=== PATIENT | female | born 1940 | race Caucasian/White ===

== ENCOUNTER → 2017-06-08 10:19 | Outpatient (CLI) | payer MEDICARE, MEDICAID, SELFPAY ==
--- NOTE | 2017-06-08 10:43 | XR_ITS ---
XR chest 2V HISTORY: ITS.REASON: COPD, CVA, HX STROKE ORDERING PHYSICIAN: Funmilayo Ball PATIENT AGE: 76 years COMPARISON: 03/25/2009 FINDINGS: The cardiomediastinal silhouette and pulmonary vascularity are within normal limits. The lungs are clear without infiltrates, suspicious nodules, or pleural effusions. No acute bony abnormalities. IMPRESSION: Negative chest, no acute finding
== END ==
PROVIDERS: PCP Nurse Practitioner; Visit Provider Nurse Practitioner
DX: I63.9 Cerebral infarction, unspecified (principal); J44.1 Chronic obstructive pulmonary disease with (acute) exacerbation; Z86.73 Personal history of transient ischemic attack (TIA), and cerebral infarction without residual deficits; J44.9 Chronic obstructive pulmonary disease, unspecified
CPT/HCPCS: 71046

== ENCOUNTER → 2017-06-20 08:09 | Outpatient (CLI) | payer MEDICARE, MEDICAID, SELFPAY ==
--- NOTE | 2017-06-20 08:13 | US_ITS ---
US liver HISTORY: ITS.REASON: ELEVATED LIVER FUNCTION ORDERING PHYSICIAN: Funmilayo Ball PATIENT AGE: 76 years COMPARISON: None FINDINGS: PANCREAS:Unremarkable. No obvious mass or abnormal fluid collection. No ductal dilatation LIVER:No focal liver lesions demonstrated. Homogeneous echogenicity. No intrahepatic biliary ductal dilatation evident there is appropriate direction of blood flow within the portal vein which is nondilated. No intrahepatic biliary ductal dilatation evident. RIGHT KIDNEY:Unremarkable. Normal size and echogenicity. No hydronephrosis LEFT KIDNEY:Unremarkable. No hydronephrosis. Normal size and echogenicity. GALLBLADDER:Gallbladder is slightly distended and contains multiple stones. No gallbladder wall thickening or pericholecystic fluid is evident. Common bile duct is normal at 3 mm. The gallbladder measures up to 6 cm AP and 5 cm transverse. IMPRESSION: 1. Distended gallbladder with cholelithiasis. 2. Unremarkable appearing liver
== END ==
PROVIDERS: Family Provider Family Medicine; PCP Nurse Practitioner; Visit Provider Nurse Practitioner
DX: R79.89 Other specified abnormal findings of blood chemistry (principal); R94.5 Abnormal results of liver function studies
CPT/HCPCS: 76705

== ENCOUNTER → 2017-07-23 13:48 | Outpatient (POV) | payer MEDICARE, MEDICAID, SELFPAY ==
[2017-07-23 15:20] LABS: Basophils % 0.5 % (0.1-2.0); Eosinophils # 0.1 K/mm3 (0.0-0.4); Eosinophils % 1.6 % (0.1-12.0); Hematocrit 45.9 % (37.0-47.0); Hemoglobin 14.4 g/dL (12.2-16.2); Lymphocytes # 1.8 K/mm3 (0.7-4.5); Mean Corpuscular HGB Conc 31.3 g/dL (31.8-35.4); Mean Corpuscular Hemoglobin 32.7 pg (27.0-31.2); Mean Corpuscular Volume 104.6 fl (81-99); Mean Platelet Volume 7.5 fl (7.4-10.4); Monocytes # 0.5 K/mm3 (0.1-1.0); Monocytes % 6.7 % (1.7-9.3); Neutrophils # 5.4 K/mm3 (1.8-7.8); Neutrophils % 68.3 % (37.0-80.0); Platelet Count 360 K/mm3 (142-424); Red Blood Count 4.39 M/mm3 (4.20-5.40)
[2017-07-23 15:34] LABS: Alanine Aminotransferase 21 U/L (12-78); Albumin Level 2.9 gm/dL (3.4-5.0); Albumin/Globulin Ratio 0.6 (1.1-1.8); Alkaline Phosphatase 328 U/L (46-116); Amylase 104 U/L (25-125); Anion Gap 10.5 mEq/L (5-15); Aspartate Amino Transferase 15 U/L (15-37); Bilirubin,Total 0.1 mg/dL (0.2-1.0); Blood Urea Nitrogen 10 mg/dL (7-18); Carbon Dioxide 31 mmol/L (21.0-32.0); Chloride 102 mmol/L (98-107); Creatinine,Serum 0.92 mg/dL (0.55-1.02); Estimated Glomerular Filt Rate 60 ml/min (>60); GFR (African American) 72 ML/MIN (>60); Glucose 96 mg/dL (74-106); Lipase 135 u/L (73-393); Potassium 5.5 mmoL/L (3.5-5.1); Sodium 138 mmol/L (136-145); Total Protein,Serum 7.9 gm/dL (6.4-8.2)
[2017-07-26 15:22] LABS: Bone Fraction: 24 % (14-68); Liver Fraction: 73 % (18-85)
[2017-07-26 15:50] LABS: Alkaline Phosphatase 302 IU/L (39-117)
[2017-07-26 15:54] LABS: Intestinal Frac.: 2 % (0-18)
== END ==
PROVIDERS: Family Provider Family Medicine; PCP Nurse Practitioner; Visit Provider Nurse Practitioner Acute Care
DX: R94.5 Abnormal results of liver function studies (principal)
CPT/HCPCS: 36415; 80053; 82150; 83690; 84080; 85025

== ENCOUNTER → 2017-08-02 08:39 | Outpatient (CLI) | payer MEDICARE, MEDICAID, SELFPAY ==
--- NOTE | 2017-08-02 08:43 | MR_ITS ---
MR abdomen wo con, MR 3-d myelogram/MRCP HISTORY: ITS.REASON: RUQ PAIN, ABNORMAL LIVER FUNCTION ORDERING PHYSICIAN: Marlene Duenas PATIENT AGE: 76 years COMPARISON: ultrasound of 06/20/2017 TECHNIQUE: Standard multiplanar multiecho sequences are performed without contrast. MRCP images also obtained FINDINGS: There are multiple gallstones present. The gallbladder is mildly distended. There is a stone present within the neck/cystic duct region of the gallbladder. This stone measures approximately 1 cm. The gallbladder wall does not appear thickened and there is no pericholecystic fluid evident. Proximal common bile duct measures approximate 7 mm which is upper limits of normal. No definite common duct stones are evident. Pancreatic duct is normal in caliber. On the 3-D reformatted images are as questionable filling defect at the distal common bile duct. This however may limit be related to a partial volume averaging artifact from the overlying folds of the duodenum as no obvious filling defect is evident on the raw data axial images. The liver, spleen, pancreas, and kidneys have an unremarkable appearance. IMPRESSION: 1. Cholelithiasis with distended gallbladder and suspected impacted stone within the neck/proximal cystic duct region of the gallbladder. 2. No definite common duct stones apparent.
== END ==
PROVIDERS: Family Provider Family Medicine; PCP Nurse Practitioner; Visit Provider Nurse Practitioner Acute Care
DX: R94.5 Abnormal results of liver function studies (principal); K80.20 Calculus of gallbladder without cholecystitis without obstruction
CPT/HCPCS: 74181; 76376

== ENCOUNTER → 2017-09-24 14:52 | Outpatient (POV) | payer MEDICARE, MEDICAID, SELFPAY | PROVIDERS: Visit Provider Nurse Practitioner Acute Care | DX: Z00.00 Encounter for general adult medical examination without abnormal findings (principal) ==

== ENCOUNTER → 2017-12-25 09:16 | Outpatient (CLI) | payer MEDICARE, MEDICAID, SELFPAY ==
--- NOTE | 2017-12-25 | US_ITS ---
US Arterial Ankle Brachial Ind History: Diminished pulses, smoker ORDERING PHYSICIAN: Lashonda James PATIENT AGE: 77 years TECHNIQUE: Segmental pressures obtained of both right and left leg. These are compared to brachial blood pressure to yield index at each level sampled including summary ROSA. The data sheets from the procedure are available in PACS FINDINGS Rest study only performed today No prior studies available for comparison. Blood pressures reported are in millimeters mercury. The right brachial blood pressure remained low compared to the left side only measuring 88 mmHg compared to 130 on the left. The right lower extremity indices are therefore compared to the left upper extremity. RIGHT LEG ROSA = 0.98. RIGHT LEG TBI=1.08 Brachial BP: 88 Thigh BP: 100 Calf BP: 102 Ankle PT: 103 Ankle DP : 127 Digit =140 LEFT LEG ROSA = 0.91 LEFT LEG TBI= 0.68 Brachial BPD: 140 Thigh BP: 144 Calf BP: 130 Ankle PT:118 Ankle DP: 117 Digit = 89 Pulses and waveforms: Normal IMPRESSION: 1. The ABIs as reported above are within normal limits. Waveforms and pulses are also unremarkable. 2. Slightly low left TBI which may indicate small vessel disease. 3. Asymmetric blood pressure with depressed right upper extremity pressure suggesting a stenosis of the right subclavian, axillary or brachial artery. CT angiogram may confirm.
== END ==
PROVIDERS: Family Provider Family Medicine; PCP Nurse Practitioner Family; Visit Provider Nurse Practitioner Family
DX: R09.89 Other specified symptoms and signs involving the circulatory and respiratory systems (principal)
CPT/HCPCS: 93922

== ENCOUNTER → 2018-08-15 10:54 | Outpatient (POV) | payer MEDICARE, MEDICAID, SELFPAY | PROVIDERS: Visit Provider Podiatrist | DX: Z00.00 Encounter for general adult medical examination without abnormal findings (principal) ==

== ENCOUNTER → 2019-02-13 10:31 | Outpatient (CLI) | payer MEDICARE, MEDICAID, SELFPAY ==
--- NOTE | 2019-02-13 10:42 | XR_ITS ---
PROCEDURE: XR CHEST 2V CLINICAL HISTORY: PNEUMONIA,COPD Or COMPARISON: CXR2V XR chest 2V from 06/08/2017 FINDINGS: The cardiomediastinal silhouette and pulmonary vascularity are within normal limits. The lungs are clear without infiltrates, suspicious nodules, or pleural effusions. Chronic changes left lung base/pericardial fat pad IMPRESSION: No change with no acute finding Dictated by: George Navarrete MD 02/13/2019 11:15 Electronically signed by George Navarrete MD in [place] 02/13/2019 11:15
== END ==
PROVIDERS: PCP Family Medicine; Visit Provider Nurse Practitioner Family
DX: J18.1 Lobar pneumonia, unspecified organism (principal); J44.1 Chronic obstructive pulmonary disease with (acute) exacerbation
CPT/HCPCS: 71046

== ENCOUNTER → 2019-03-26 12:50 | Outpatient (CLI) | payer MEDICARE, MEDICAID, SELFPAY ==
--- NOTE | 2019-03-26 12:54 | US_ITS ---
APPROVED REPORT Exam Type: Lower Extremity Segmental Pressures Wood Engraver: Lashaun Fraga RVT Indications Claudication: Bilaterally Rest Pain: Bilaterally Edema Current Smoker Risk Factors Hypertension TIA/CVA History Current Smoker Pressures/Indices Right Indices Left Indices Brachial Brachial 170.00 mmHg Low Thigh 160.00 mmHg 0.94 Low Thigh 162.00 mmHg 0.95 Calf 161.00 mmHg 0.95 Calf 152.00 mmHg 0.89 Ankle(PT) 155.00 mmHg 0.91 Ankle(PT) 162.00 mmHg 0.95 Ankle(DP) 160.00 mmHg 0.94 Ankle(DP) 155.00 mmHg 0.91 Digit 142.00 mmHg 0.84 Digit 127.00 mmHg 0.75 Findings RT ROSA:0.91 LT ROSA:0.95 RT TBI:0.84 LT TBI:0.75 RT BRACHIAL BP NOT OBTAINED R/T PRIOR CVA WITH RT ARM PARALYSIS. NORMAL PULSES BILATERAL NORMAL WAVEFORMS BILATERAL Conclusion No evidence significant arterial disease throughout the right and left lower extremities as evidenced by normal resting PVR waveforms and normal resting indices. Electronically signed by : George Navarrete MD 03/26/2019 18:45:05
== END ==
PROVIDERS: PCP Family Medicine; Visit Provider Podiatrist
DX: R09.89 Other specified symptoms and signs involving the circulatory and respiratory systems (principal)
CPT/HCPCS: 93923

== ENCOUNTER → 2019-04-21 10:52 | Outpatient (CLI) | payer MEDICARE, MEDICAID, SELFPAY ==
--- NOTE | 2019-04-21 11:01 | XR_ITS ---
PROCEDURE: XR CHEST 2V CLINICAL HISTORY: PNEUMONIA COMPARISON: XR CHEST 2V from 02/13/2019 FINDINGS: The cardiomediastinal silhouette and pulmonary vascularity are within normal limits. Patchy density is present in both lower lobes and may be due to areas of atelectasis and/or infiltrate. The remaining lungs are clear. No acute bony abnormalities. IMPRESSION: Mild bibasilar airspace disease Dictated by: George Navarrete MD 04/21/2019 12:09 Electronically signed by George Navarrete MD in [place] 04/21/2019 12:09
[2019-04-21 12:57] LABS: Basophils % 0.4 % (0.1-2.0); Eosinophils # 0.1 K/mm3 (0.0-0.4); Hematocrit 40.7 % (37.0-47.0); Hemoglobin 12.5 g/dL (12.2-16.2); Lymphocytes # 0.9 K/mm3 (0.7-4.5); Lymphocytes % 9.1 % (10-50); Mean Corpuscular HGB Conc 30.7 g/dL (31.8-35.4); Mean Corpuscular Hemoglobin 32.9 pg (27.0-31.2); Mean Corpuscular Volume 107.1 fl (81-99); Mean Platelet Volume 7.8 fl (7.4-10.4); Monocytes # 0.4 K/mm3 (0.1-1.0); Monocytes % 4.6 % (1.7-9.3); Neutrophils % 84.9 % (37.0-80.0); Platelet Count 330 K/mm3 (142-424); Red Cell Distribution Width 12.6 % (11.5-17.5); White Blood Count 9.4 K/mm3 (4.8-10.8)
[2019-04-21 15:17] LABS: Alanine Aminotransferase 13 U/L (12-78); Albumin/Globulin Ratio 0.8 (1.1-1.8); Alkaline Phosphatase 355 U/L (46-116); Anion Gap 13.3 mEq/L (5-15); Aspartate Amino Transferase 9 U/L (15-37); Bilirubin,Total 0.2 mg/dL (0.2-1.0); Blood Urea Nitrogen 15 mg/dL (7-18); Calcium 8.2 mg/dL (8.5-10.1); Carbon Dioxide 26 mmol/L (21.0-32.0); Chloride 102 mmol/L (98-107); Creatinine,Serum 1.17 mg/dL (0.55-1.02); Estimated Glomerular Filt Rate 45 ml/min (>60); GFR (African American) 54 ML/MIN (>60); Globulin 3.9 gm/dl (1.3-3.2); Glucose 94 mg/dL (74-106); Potassium 5.3 mmoL/L (3.5-5.1); Sodium 136 mmol/L (136-145); Total Protein,Serum 6.9 gm/dL (6.4-8.2)
== END ==
PROVIDERS: PCP Family Medicine; Visit Provider Nurse Practitioner Family
DX: J18.9 Pneumonia, unspecified organism (principal); R06.02 Shortness of breath
CPT/HCPCS: 36415; 71046; 80053; 83880; 85025

== ENCOUNTER 2019-09-19 18:43 | Emergency (ER) | payer MEDICARE, MEDICAID, SELFPAY ==
[2019-09-19 18:54] VITALS: BP 165/83; PULSE 107; RESP 18; TEMP 37.3; O2SAT 98; BMI 24.7
--- NOTE | 2019-09-19 19:06 | XR_ITS ---
PROCEDURE: XR KNEE LT 3V CLINICAL INDICATION: injury Posttraumatic pain COMPARISON: KNEE3R KNEE-3 VIEWS-RT from 03/07/2014 [id number] KNEE-LIMITED 2 VIEWS-RT from 03/25/2014 [id number] KNEE-LIMITED 2 VIEWS-RT from 04/28/2014 [id number] KNEE-LIMITED 2 VIEWS-RT from 06/09/2014 FINDINGS: Mild osteoarthritic changes of the medial compartment and patellofemoral joint. No acute fracture or dislocation. Other findings:None. IMPRESSION: No acute findings. Dictated by: George Navarrete MD 09/19/2019 22:43 Electronically signed by George Navarrete MD in [place] 09/19/2019 22:43
[2019-09-19 19:11] VITALS: BP 165/83; PULSE 107; RESP 18; TEMP 37.3; O2SAT 98; BMI 24.7
--- NOTE | 2019-09-19 19:29 | HMH.EDUTC ---
[facility] [place] Disposition Clinical Impression: Left knee pain Qualifiers: Chronicity: acute Qualified Code(s): M25.562 - Pain in left knee Fall Qualifiers: Encounter type: initial encounter Qualified Code(s): W19.XXXA - Unspecified fall, initial encounter Disposition: Home, Self-Care Condition on Discharge: Good Instructions: DI for Knee Pain Additional Instructions: Rest the extremity, apply ice for 15 minutes as tolerated three or four times per day, Wear the magaly wrap for compression, Elevate the extremity as tolerated while you are resting. Follow up with Dr. Cui. I put in a referral but you need to call her office and schedule an appointment. Follow up with your regular doctor. GO TO THE ER FOR ANY WORSENING SYMPTOMS Referrals: Aneesh Andrade MD [Primary Care Provider] - Brigette Cui MD [Physician] - Time of Disposition: 20:15 Medical Decision Making - Medical Records Medical records reviewed: No: I reviewed the patient's medical records. - Ricardo Inquiry Pt receiving controlled substance: No Vital Signs: 09/19/19 18:54 09/19/19 19:11 09/19/19 20:19 Temperature 99.1 F 99.1 F 99.1 F Temperature Source Oral Oral Pulse Rate 107 H Pulse Rate [Left Radial] 107 H 107 H Respiratory Rate 18 18 18 Blood Pressure 165/83 H Blood Pressure [Right Arm] 165/83 H 165/83 H Blood Pressure Mean [Right Arm] 110 110 Blood Pressure Source [Right Arm] Automatic Cuff Blood Pressure Position [Right Arm] Sitting Sitting 02 Sat by Pulse Oximetry 98 98 Oxygen Delivery Method Room Air Room Air - Radiology Data #1 Image(s): Knee Image Reviewed: Yes I reviewed the patient's radiology image, Yes I have reviewed radiologist's interpretation Preliminary Findings: No Fracture Seen PROCEDURE: XR KNEE LT 3V CLINICAL INDICATION: injury Posttraumatic pain COMPARISON: KNEE3R KNEE-3 VIEWS-RT from 03/07/2014 [id number] KNEE-LIMITED 2 VIEWS-RT from 03/25/2014 [id number] KNEE-LIMITED 2 VIEWS-RT from 04/28/2014 [id number] KNEE-LIMITED 2 VIEWS-RT from 06/09/2014 FINDINGS: Mild osteoarthritic changes of the medial compartment and patellofemoral joint. No acute fracture or dislocation. Other findings:None. IMPRESSION: No acute findings. Dictated by: George Navarrete MD 09/19/2019 22:43 Electronically signed by George Navarrete MD in [place] 09/19/2019 22:43 [facility] [place] HPI - General Stated complaint: AO 09/19/19 Fell at home, injured l leg Time Seen by Provider: 09/19/19 19:36 Mode of Arrival: Ambulatory Source of Information: Patient Limitations: No Limitations Description of Symptoms (Recalled from Triage Doc. by RN): to ed pre pvt car pt states tripped over a strip on the floor, fell landing on rt knee. pt with hx of CVA weakness to rt side. pt denies any LOC or head injury. pt c/o pain lateral rt knee HEENT Symptoms (Recalled from RN notes): No Resp Symptoms (Recalled from RN notes): No Skin Symptoms (Recalled from RN notes): No MS Symptoms (Recalled from RN notes): Yes Functional Status (Recalled from RN notes): WNL - History of Present Illness Provider Complaint: She states that earlier today she fell forward from tripping over something in her floor and came down on her right knee. Since then she has had right knee pain that is worse when she tries to bear weight on it. - Related Data Home Medications Medication Instructions Recorded Confirmed phenytoin sodium extended 100 mg 100 mg PO TID 07/06/17 05/28/19 capsule Phenytoin [Dilantin 50mg Chewable 50 mg PO QODHS 08/21/17 05/28/19 Tablet] Fluticasone/Vilanterol [Breo 1 each IH DAILY 08/31/17 05/28/19 Ellipta 100-25 Mcg INH] Cyanocobalamin (Vitamin B-12) 1,000 mcg PO DAILY 04/26/18 05/28/19 [Vitamin B-12] Ursodiol 500 mg PO BID 04/26/18 05/28/19 clopidogrel 75 mg tablet 75 mg PO DAILY 02/24/19 05/28/19 ipratropium 0.5 mg-albuterol 3 mg ml INHALATION 05/28/19 05/28/19 (2.5 mg base)/3 mL nebulization yenifer singh
[2019-09-19 20:19] VITALS: BP 165/83; PULSE 107; RESP 18; TEMP 37.3; O2SAT 98
== END 2019-09-19 20:20 | disposition home or self-care (01) ==
PROVIDERS: Emergency Provider Nurse Practitioner Family; PCP Family Medicine
DX: M25.562 Pain in left knee (principal); W01.0XXA Fall on same level from slipping, tripping and stumbling without subsequent striking against object, initial encounter; Y92.019 Unspecified place in single-family (private) house as the place of occurrence of the external cause; Z86.73 Personal history of transient ischemic attack (TIA), and cerebral infarction without residual deficits; J44.9 Chronic obstructive pulmonary disease, unspecified; F17.210 Nicotine dependence, cigarettes, uncomplicated
CPT/HCPCS: 73562; 99201

== ENCOUNTER → 2020-04-20 15:21 | Outpatient (CLI) | payer MEDICARE, MEDICAID, SELFPAY ==
--- NOTE | 2020-04-20 | XR_ITS ---
PROCEDURE: XR CHEST PORTABLE CLINICAL HISTORY: Low O2, smoker, COPD COMPARISON: DX CXR2V XR chest 2V from 06/08/2017 CR XR CHEST 2V from 02/13/2019 DX XR CHEST 2V from 04/21/2019 FINDINGS: The cardiomediastinal silhouette and pulmonary vascularity are within normal limits. The lungs are clear without infiltrates, suspicious nodules, or pleural effusions. There is diffuse osteopenia. IMPRESSION: No acute findings. Dictated by: George Navarrete MD 04/20/2020 17:04 George Navarrete MD in [place] 04/20/2020 17:04
[2020-04-20 18:16] LABS: Basophils % 0.9 % (0.1-2.0); Eosinophils % 0.1 % (0.1-12.0); Hemoglobin 12.4 g/dL (12.2-16.2); Lymphocytes # 0.8 K/mm3 (0.7-4.5); Lymphocytes % 16.1 % (10-50); Mean Corpuscular HGB Conc 32.6 g/dL (31.8-35.4); Mean Corpuscular Hemoglobin 31.8 pg (27.0-31.2); Mean Corpuscular Volume 97.3 fl (81-99); Mean Platelet Volume 8.9 fl (7.4-10.4); Monocytes # 0.4 K/mm3 (0.1-1.0); Monocytes % 8.1 % (1.7-9.3); Neutrophils # 3.5 K/mm3 (1.8-7.8); Neutrophils % 74.8 % (37.0-80.0); Platelet Count 253 K/mm3 (142-424); Red Blood Count 3.91 M/mm3 (4.20-5.40); White Blood Count 4.7 K/mm3 (4.8-10.8)
[2020-04-20 18:22] LABS: Chloride 101 mmol/L (98-107); Potassium 4.7 mmoL/L (3.5-5.1); Sodium 131 mmol/L (136-145)
[2020-04-20 18:24] LABS: Alanine Aminotransferase 12 U/L (12-78); Aspartate Amino Transferase 28 U/L (14-36); Blood Urea Nitrogen 13 mg/dl (7-17); Estimated Glomerular Filt Rate 43 ml/min (>60); GFR (African American) 53 ML/MIN (>60)
[2020-04-20 18:25] LABS: Albumin Level 3.7 g/dl (3.5-5.0); Albumin/Globulin Ratio 0.9 (1.1-1.8); Alkaline Phosphatase 358 U/L (38-126); Anion Gap 11.7 mEq/L (5-15); Bilirubin,Total 0.3 mg/dl (0.2-1.3); Carbon Dioxide 23 mmol/L (22.0-30.0); Globulin 3.9 g/dL (1.3-3.2); Glucose 112 mg/dl (74-100); Total Protein,Serum 7.6 g/dl (6.3-8.2)
== END ==
PROVIDERS: PCP Nurse Practitioner Family; Visit Provider Nurse Practitioner Family
DX: U07.1 COVID-19 (principal)
CPT/HCPCS: 36415; 71045; 80053; 85025; U0003

== ENCOUNTER 2020-04-23 09:37 | Inpatient (IN) | payer MEDICARE, MEDICAID, SELFPAY ==
[2020-04-23] VITALS (13 sets, daily range): BP systolic 122–164; BP diastolic 62–74; PULSE 95–100; RESP 20–28; TEMP 36.6–37.1; O2SAT 88–98; BMI 25.7; BMI 22.8
--- NOTE | 2020-04-23 09:48 | HMH.EDGENADL ---
ED Disposition Clinical Impression: COVID-19 virus infection, Acute hypoxemic respiratory failure Pneumonia Qualifiers: Pneumonia type: due to unspecified organism Laterality: right Lung location: lower lobe of lung Qualified Code(s): J18.9 - Pneumonia, unspecified organism Disposition: Admitted As Inpatient Condition on Discharge: Fair Referrals: Linn Arango MD [Primary Care Provider] - - Critical Care Critical Care Time: No Attestation: On 04/23/20, the high probability of a clinically significant, sudden or life threatening deterioration of the following system(s) required my full and direct attention, intervention and personal management. The time I documented below is in addition to time spent performing reported procedures but includes the following listed in this critical care notation. Medical Decision Making - Medical Records Medical records reviewed: Yes: I reviewed the patient's medical records. - Ricardo Inquiry Pt receiving controlled substance: No Vital Signs: 04/23/20 09:39 04/23/20 10:39 04/23/20 11:11 Temperature 98.3 F Temperature Source Oral Pulse Rate [Left Radial] 95 H 97 H 100 H Respiratory Rate 20 20 22 Blood Pressure [Right Arm] 129/63 132/63 164/73 H Blood Pressure Mean [Right Arm] 85 86 103 Blood Pressure Source [Right Arm] Automatic Cuff Automatic Cuff Automatic Cuff Blood Pressure Position [Right Arm] Sitting Sitting Sitting 02 Sat by Pulse Oximetry 88 L 98 97 Oxygen Delivery Method Room Air Nasal Cannula Nasal Cannula Oxygen Flow Rate (LPM) 2 2 - Lab Data Lab Results 04/23/20 10:00: WBC 6.3 D, RBC 4.19 L, Hgb 13.1, Hct 42.0, MCV 100.3 H, MCH 31.3 H, MCHC 31.2 L, RDW 14.3, Plt Count 303, MPV 8.3, Neut % (Auto) 82.1 H, Lymph % (Auto) 10.9, [place] % (Auto) 5.9, Eos % (Auto) 0.0 L, Baso % (Auto) 1.0, Neut # (Auto) 5.1, Lymph # (Auto) 0.7, [place] # (Auto) 0.4, Eos # (Auto) 0.0, Baso # (Auto) 0.1 04/23/20 10:00: Sodium 132 L, Potassium 4.8, Chloride 99, Carbon Dioxide 27, Anion Gap 10.8, BUN 14, Creatinine 1.30 H, Estimated Creat Clear 38, Estimated GFR 40 L, Est GFR ( Amer) 48 L, Glucose 115 H, Calcium 8.1 L, Total Bilirubin 0.3, AST 27, ALT 11 L, Alkaline Phosphatase 329 H, Troponin I < 0.01, Total Protein 7.6, Albumin 3.6, Globulin 4.0 H, Albumin/Globulin Ratio 0.9 L 04/23/20 10:00: Lactate 1.1 04/23/20 10:35: Urine Color Yellow, Urine Appearance Clear, Urine pH 6.0, Ur Specific [place] 1.020, Urine Protein 2+, Urine Glucose (UA) Negative, Urine Ketones Negative, Urine Blood Trace-i, Urine Nitrate Negative, Urine Bilirubin Negative, Urine Urobilinogen 0.2, Ur Leukocyte Esterase Negative, Urine RBC Occasional, Urine WBC None, Ur Squamous Epith Cells Occasional, Amorphous Sediment 1+, Urine Bacteria None Result diagrams: 04/23/20 10:00 04/23/20 10:00 Orders (Tests/Meds): ED MEDICATIONS Generic Name Dose Route Start Last Admin Trade Name Freq PRN Reason Stop Dose Admin Acetaminophen 650 mg 04/23/20 10:07 Acetaminophen 325mg Tab PO 05/23/20 10:06 Q6HP PRN Mild pain,fever,headache Albuterol/Ipratropium 3 ml 04/23/20 13:00 Albuterol/Ipratropium 3 Ml Neb IH 05/23/20 12:59 Q4H TK Ascorbic Acid 500 mg 04/23/20 10:30 04/23/20 10:40 Ascorbic Acid 500mg Tab PO 05/23/20 10:29 500 mg QID TK Administration Dexamethasone 6 mg 04/23/20 10:30 04/23/20 10:40 Dexamethasone 4mg Tablet PO 05/23/20 10:29 6 mg DAILY TK Administration Enoxaparin Sodium 40 mg 04/23/20 10:30 04/23/20 10:40 Enoxaparin 40mg/0.4ml Syringe SQ 05/23/20 10:29 40 mg DAILY TK Administration Ergocalciferol 50,000 unit 04/23/20 10:15 04/23/20 10:40 Ergocalciferol 50,000 Units (1.25mg) Capsule PO 05/23/20 10:14 50,000 unit WEEKLY TK Administration Famotidine 20 mg 04/23/20 10:15 04/23/20 10:39 Famotidine 20mg Tablet PO 05/23/20 10:14 20 mg BID TK Administration Sodium Chloride 1,000 mls @ 100 mls/hr 04/23/20 10:15
--- NOTE | 2020-04-23 09:49 | ECG_ITS ---
APPROVED REPORT Exam: Resting ECG HR:98 bpm ECG Measurements Heart Rate 98 AXES DE 144 P 55 QRSd 70 QRS 44 QT 344 T 60 QTc 439 Conclusion Normal sinus rhythm Possible Left atrial enlargement Low voltage QRS Borderline ECG Electronically signed by : Aneesh Elise, 04/23/2020 15:19:47
--- NOTE | 2020-04-23 10:05 | XR_ITS ---
PROCEDURE: XR CHEST PORTABLE CLINICAL HISTORY: cough/ soa Covid19 positive COMPARISON: CR XR CHEST 2V from 02/13/2019 DX XR CHEST 2V from 04/21/2019 CR XR CHEST PORTABLE from 04/20/2020 FINDINGS: The cardiomediastinal silhouette and pulmonary vascularity are within normal limits. Increased markings are present in the right lower lobe some of which may be due to overlying breast attenuation. However, ground-glass infiltrate also considered in the right lung base. Nodular opacity overlies the left lower lung zone may be due to nipple shadow. The remaining lungs are clear. No acute bony abnormalities. IMPRESSION: Right lower lobe pneumonia Dictated by: George Navarrete MD 04/23/2020 11:03 George Navarrete MD in [place] 04/23/2020 11:03
--- NOTE | 2020-04-23 10:10 | PC.NURSE ---
port chest being done
[2020-04-23 10:16] LABS: Basophils # 0.1 K/mm3 (0-0.2); Hemoglobin 13.1 g/dL (12.2-16.2); Lymphocytes # 0.7 K/mm3 (0.7-4.5); Lymphocytes % 10.9 % (10-50); Mean Corpuscular HGB Conc 31.2 g/dL (31.8-35.4); Mean Corpuscular Hemoglobin 31.3 pg (27.0-31.2); Mean Corpuscular Volume 100.3 fl (81-99); Mean Platelet Volume 8.3 fl (7.4-10.4); Monocytes # 0.4 K/mm3 (0.1-1.0); Monocytes % 5.9 % (1.7-9.3); Neutrophils # 5.1 K/mm3 (1.8-7.8); Neutrophils % 82.1 % (37.0-80.0); Platelet Count 303 K/mm3 (142-424); Red Blood Count 4.19 M/mm3 (4.20-5.40); Red Cell Distribution Width 14.3 % (11.5-17.5); White Blood Count 6.3 K/mm3 (4.8-10.8)
[2020-04-23 10:31] LABS: Alanine Aminotransferase 11 U/L (12-78); Albumin Level 3.6 g/dl (3.5-5.0); Albumin/Globulin Ratio 0.9 (1.1-1.8); Alkaline Phosphatase 329 U/L (38-126); Anion Gap 10.8 mEq/L (5-15); Aspartate Amino Transferase 27 U/L (14-36); Bilirubin,Total 0.3 mg/dl (0.2-1.3); Blood Urea Nitrogen 14 mg/dl (7-17); Calcium 8.1 mg/dl (8.4-10.2); Carbon Dioxide 27 mmol/L (22.0-30.0); Chloride 99 mmol/L (98-107); Creatinine Clearance Estimated 38 mL/min (50-200); Estimated Glomerular Filt Rate 40 ml/min (>60); GFR (African American) 48 ML/MIN (>60); Glucose 115 mg/dl (74-100); Lactic Acid 1.1 mmol/L (0.7-2.1); Potassium 4.8 mmoL/L (3.5-5.1); Sodium 132 mmol/L (136-145); Total Protein,Serum 7.6 g/dl (6.3-8.2)
[2020-04-23 10:44] LABS: Troponin I < 0.01 ng/ml (0.00-0.034)
[2020-04-23 11:27] LABS: Microscopic, Urine URINE MICROSCOPIC (MICROSCOPIC)
[2020-04-23 11:28] LABS: Appearance,Urine CLEAR (Clear); Bilirubin,Urine Negative (Negative); Blood, Urine TRACE-I (Negative); Color,Urine YELLOW (Yellow); Glucose,Urine (UA) Negative (Negative); Ketones,Urine Negative (Negative); Leukocyte Esterase,Urine Negative (Negative); Nitrate,Urine Negative (Negative); Protein,Urine 2+ (Negative); Urobilinogen,Urine 0.2 EU/dl (0.2)
[2020-04-23 11:36] LABS: Amorphous Sediment,Urine 1+ /lpf; RBC,Urine Occasional #/hpf (0-3); Squamous Epithelial Cell,Urine Occasional #/hpf (0-5)
--- NOTE | 2020-04-23 11:41 | PC.NURSE ---
Dr Sandoval speaking to Dr Andrade for admission
--- NOTE | 2020-04-23 11:53 | PC.NURSE ---
care management called for bed placement
[2020-04-23 16:56] LABS: Procalcitonin 0.092 ng/mL (0.0-2.0)
--- NOTE | 2020-04-23 17:03 | PC.NURSE ---
REPORT CALLED TO JEFFERY ALLEN
--- NOTE | 2020-04-23 17:11 | PC.NURSE ---
URINE OUTPUT 1000CC
--- NOTE | 2020-04-23 18:01 | HMH.HP ---
*Admission Date: 04/23/20 *Chief complaint: shortness of breath *History of present illness: 79 year old female with history of CVA and COPD with continued cigarette use presented to the ER with worsening dyspnea related to known Covid-19 diagnosed on 04/20/19. Patient had been using oxygen at home but today oxygen saturations were in the mid 80's on 2l/min via NC and family was instructed to bring the patient to the ER. In the ER patient had desaturations that responded to increase in supplemental oxygen to 3 L/min with sats in the low to mid 90's. Patient has been admitted for Covid pneumonia wiht acute respiratory failure. [facility] History I have reviewed the patient's past medical history: Yes Medical History: Reports:: Aneurysm, Cancer, Chronic Obstructive Pulmonary Disease (COPD), Lung Disease, Seizures, Transient Ischemic Attacks (TIA) Denies:: Diabetes Mellitus Type 1, Diabetes Mellitus Type 2, Internal Pacemaker *Have you ever received a pneumonia vaccine?: No *Have you received a flu vaccine this season?: No Other Medical History: Reports: Other. Denies: Blood Transfusion Reaction Laterality Cases: Bilateral: Other Other Surgeries: Yes: (x 2 ), Hysterectomy-Total, Hysterectomy-Partial, Skin Cancer Excision, Other. No: Pacemaker Amputation: No Fractures: No - *Social History Smoking Status: Current every day smoker Tobacco Type: cigarettes # Packs/Day (cigarettes): 1 Alcohol Intake: never Alcohol Intake Frequency:: other Substance Use Type: denies use *Occupational Status:: other Housing: house Household Members: family *Travel in the last 8 weeks: None Family Hx:: Unable to obtain Review of Systems - Constitutional Reports anorexia, Reports lack of energy, Denies body ache(s), Denies chills, Denies increased appetite - *Cardiovascular Denies chest pain, Denies chest pain at rest, Denies chest pain with activity - *Respiratory Reports chest congestion, Reports cough, Reports shortness of breath, Denies change in phlegm color - *Gastrointestinal Denies abdominal pain, Denies belching, Denies bloating - *Genitourinary Denies difficulty urinating, Denies painful urination - *Musculoskeletal Reports limited joint movement, Reports muscle weakness - *Neurologic Reports abnormal walking, Reports abnormal speech, Reports weakness (right hemiplegia), Denies abnormal hearing, Denies abnormal movements Meds Home Medications Medication Instructions Recorded Confirmed Type phenytoin sodium extended 100 mg 100 mg PO TID 07/06/17 05/28/19 History capsule Phenytoin [Dilantin 50mg Chewable 50 mg PO QODHS 08/21/17 05/28/19 History Tablet] Fluticasone/Vilanterol [Breo 1 each IH DAILY 08/31/17 05/28/19 History Ellipta 100-25 Mcg INH] Cyanocobalamin (Vitamin B-12) 1,000 mcg PO DAILY 04/26/18 05/28/19 History [Vitamin B-12] Ursodiol 500 mg PO BID 04/26/18 05/28/19 History clopidogrel 75 mg tablet 75 mg PO DAILY 02/24/19 05/28/19 History ipratropium 0.5 mg-albuterol 3 mg ml INHALATION 05/28/19 05/28/19 History (2.5 mg base)/3 mL nebulization soln losartan 50 mg tablet 50 mg PO tab 05/28/19 05/28/19 History Allergies Allergy/AdvReac Type Severity Reaction Status Date / Time No Known Allergies Allergy Verified 05/28/19 15:32 Exam Vital signs and Labs for Last 24 Hours: Temp Pulse Resp BP Pulse Ox 98 F 98 H 28 H 122/74 93 L 04/23/20 17:48 04/23/20 17:48 04/23/20 17:48 04/23/20 17:48 04/23/20 14:25 Laboratory Results - last 24 hr 04/23/20 10:00: WBC 6.3 D, RBC 4.19 L, Hgb 13.1, Hct 42.0, MCV 100.3 H, MCH 31.3 H, MCHC 31.2 L, RDW 14.3, Plt Count 303, MPV 8.3, Neut % (Auto) 82.1 H, Lymph % (Auto) 10.9, [place] % (Auto) 5.9, Eos % (Auto) 0.0 L, Baso % (Auto) 1.0, Neut # (Auto) 5.1, Lymph # (Auto) 0.7, [place] # (Auto) 0.4, Eos # (Auto) 0.0, Baso # (Auto) 0.1 04/23/20 10:00: Sodium 132 L, Potassium 4.8, Chloride 99, Carbon Dioxide 27, Anion Gap 10.8, BUN 14, Creatinine 1.30 H, Es
[2020-04-23 18:36] LABS: C-Reactive Protein 144.5 mg/L (0-4)
[2020-04-24] VITALS (13 sets, daily range): BP systolic 125–141; BP diastolic 53–73; PULSE 85–105; RESP 18; TEMP 36.4–37.8; O2SAT 87–95; BMI 23.1
--- NOTE | 2020-04-24 06:32 | PC.NURSE ---
Pt has been A&Ox4 this shift. Rhonchi heard bilat t/o all lung bases per auscultation. No cough noted this shift. Spec cup put in room by RT, pt verbalized understanding. Pt has been on 2-2.5 L this shift, with 02 sats ranging from 90-94%. Pt RA=84%. Grier cath remains patent and is draining clear, dark urine per gravity. PIV remains patent and is infusing NS @ 100 ml/hr. Active bowel sounds in all 4 quads, no BM noted this shift. Pt has had a poor appetite this shift and has been encouraged to drink whenever staff is in room. Pt received a bed bath and linen/gown change this shift. No other acute changes or complaints at this time.
[2020-04-24 06:45] LABS: Basophils % 0.7 % (0.1-2.0); Eosinophils % 0.1 % (0.1-12.0); Hematocrit 35.3 % (37.0-47.0); Lymphocytes # 0.7 K/mm3 (0.7-4.5); Lymphocytes % 14.2 % (10-50); Mean Corpuscular HGB Conc 31.2 g/dL (31.8-35.4); Mean Corpuscular Hemoglobin 31.2 pg (27.0-31.2); Mean Corpuscular Volume 100.1 fl (81-99); Mean Platelet Volume 9.2 fl (7.4-10.4); Monocytes # 0.4 K/mm3 (0.1-1.0); Monocytes % 8.1 % (1.7-9.3); Neutrophils # 3.6 K/mm3 (1.8-7.8); Platelet Count 267 K/mm3 (142-424); Red Blood Count 3.53 M/mm3 (4.20-5.40); Red Cell Distribution Width 14.1 % (11.5-17.5); White Blood Count 4.7 K/mm3 (4.8-10.8)
[2020-04-24 07:03] LABS: Alanine Aminotransferase 8 U/L (12-78); Albumin Level 2.8 g/dl (3.5-5.0); Alkaline Phosphatase 243 U/L (38-126); Anion Gap 11.2 mEq/L (5-15); Aspartate Amino Transferase 31 U/L (14-36); Bilirubin,Direct 0.2 mg/dl (0.0-0.4); Bilirubin,Total 0.2 mg/dl (0.2-1.3); Blood Urea Nitrogen 12 mg/dl (7-17); Calcium 7.3 mg/dl (8.4-10.2); Carbon Dioxide 20 mmol/L (22.0-30.0); Chloride 107 mmol/L (98-107); Creatinine Clearance Estimated 39 mL/min (50-200); Estimated Glomerular Filt Rate 48 ml/min (>60); GFR (African American) 58 ML/MIN (>60); Glucose 87 mg/dl (74-100); Potassium 4.2 mmoL/L (3.5-5.1); Sodium 134 mmol/L (136-145); Total Protein,Serum 6.2 g/dl (6.3-8.2)
--- NOTE | 2020-04-24 07:46 | HMH.ACPN2 ---
Internal Medicine - PN: Subj *Date: 04/24/20 *Time: 07:46 Interval history: No new complaints this morning. No events overnight. Patient has remained on 2 to 3 L of oxygen via nasal cannula. She denies shortness of breath this morning Exam Vital signs and Labs for Last 24 Hours: Temp Pulse Resp BP Pulse Ox 99.6 F 105 H 18 125/53 L 91 L 04/24/20 07:39 04/24/20 07:39 04/24/20 07:39 04/24/20 07:39 04/24/20 07:39 Laboratory Results - last 24 hr 04/23/20 10:00: WBC 6.3 D, RBC 4.19 L, Hgb 13.1, Hct 42.0, MCV 100.3 H, MCH 31.3 H, MCHC 31.2 L, RDW 14.3, Plt Count 303, MPV 8.3, Neut % (Auto) 82.1 H, Lymph % (Auto) 10.9, [place] % (Auto) 5.9, Eos % (Auto) 0.0 L, Baso % (Auto) 1.0, Neut # (Auto) 5.1, Lymph # (Auto) 0.7, [place] # (Auto) 0.4, Eos # (Auto) 0.0, Baso # (Auto) 0.1 04/23/20 10:00: Sodium 132 L, Potassium 4.8, Chloride 99, Carbon Dioxide 27, Anion Gap 10.8, BUN 14, Creatinine 1.30 H, Estimated Creat Clear 38, Estimated GFR 40 L, Est GFR ( Amer) 48 L, Glucose 115 H, Calcium 8.1 L, Total Bilirubin 0.3, AST 27, ALT 11 L, Alkaline Phosphatase 329 H, Troponin I < 0.01, Total Protein 7.6, Albumin 3.6, Globulin 4.0 H, Albumin/Globulin Ratio 0.9 L 04/23/20 10:00: Lactate 1.1 04/23/20 10:00: Procalcitonin 0.092 04/23/20 10:00: C-Reactive Protein 144.5 H 04/23/20 10:35: Urine Color Yellow, Urine Appearance Clear, Urine pH 6.0, Ur Specific [place] 1.020, Urine Protein 2+, Urine Glucose (UA) Negative, Urine Ketones Negative, Urine Blood Trace-i, Urine Nitrate Negative, Urine Bilirubin Negative, Urine Urobilinogen 0.2, Ur Leukocyte Esterase Negative, Urine RBC Occasional, Urine WBC None, Ur Squamous Epith Cells Occasional, Amorphous Sediment 1+, Urine Bacteria None 04/24/20 05:15: WBC 4.7 L D, RBC 3.53 L, Hgb 11.0 L D, Hct 35.3 L, MCV 100.1 H, MCH 31.2, MCHC 31.2 L, RDW 14.1, Plt Count 267, MPV 9.2, Neut % (Auto) 77.0, Lymph % (Auto) 14.2, [place] % (Auto) 8.1, Eos % (Auto) 0.1, Baso % (Auto) 0.7, Neut # (Auto) 3.6, Lymph # (Auto) 0.7, [place] # (Auto) 0.4, Eos # (Auto) 0.0, Baso # (Auto) 0.0 04/24/20 05:15: Sodium 134 L, Potassium 4.2, Chloride 107, Carbon Dioxide 20 L D, Anion Gap 11.2, BUN 12, Creatinine 1.10 H, Estimated Creat Clear 39, Estimated GFR 48 L, Est GFR ( Amer) 58 L D, Glucose 87 D, Calcium 7.3 L, Total Bilirubin 0.2, Direct Bilirubin 0.2, Conjugated Bilirubin 0.0, Indirect Bilirubin 0.0, Unconjugated Bilirubin 0.0, AST 31, ALT 8 L D, Alkaline Phosphatase 243 H, Total Protein 6.2 L, Albumin 2.8 L D I & O for Last 24 hours: Intake & Output 04/21/20 04/22/20 04/23/20 04/24/20 11:59 11:59 11:59 11:59 Intake Total 1460 / 1460 Balance 1460 / 1460 Weight 150 lb 130 lb 6 oz Narrative: Patient appears comfortable with no increased work of breathing or tachypnea. Nasal cannula is in place. Lung examination reveals bibasilar rales, diffuse expiratory wheezes anteriorly and posteriorly with scattered rhonchi. Air movement is fair. Heart has a mildly tachycardic rate. No murmur is heard. Abdomen is soft. Lower extremities have no edema Assessment and Plan (1) Viral pneumonia Status: Acute Category: Medical Code(s): J12.9 - Viral pneumonia, unspecified (2) COPD (chronic obstructive pulmonary disease) Status: Acute Category: Medical Code(s): J44.9 - Chronic obstructive pulmonary disease, unspecified (3) History of stroke Status: Acute Category: Medical Code(s): Z86.73 - Personal history of transient ischemic attack (TIA), and cerebral infarction without residual deficits (4) Hemiplegia affecting dominant side, post-stroke Status: Acute Category: Medical Code(s): I69.359 - Hemiplegia and hemiparesis following cerebral infarction affecting unspecified side (5) Acute hypoxemic respiratory failure Status: Acute Category: Medical Code(s): J96.01 - Acute respiratory failure with hypoxia (6) COVID-19 virus infection Status: Acute Category: Medical Code(s): U07.1 - COVID-19
--- NOTE | 2020-04-24 11:36 | HMH.PHAVTE ---
[facility] Pharmacy VTE Monitoring - Patient Demographics Admission date: 04/24/20 Report Date: 04/24/20 Time: 11:36 Allergies/Adverse Reactions: Patient Allergies No Known Allergies Allergy (Verified 05/28/19 15:32) Height: 1.6 m Weight: 59.137 kg Patient Problems: Current Active Problems COVID-19 virus infection (Acute) Pneumonia (Acute) Acute hypoxemic respiratory failure (Acute) COPD (chronic obstructive pulmonary disease) (Acute) History of stroke (Acute) Hemiplegia affecting dominant side, post-stroke (Acute) Stage 3b chronic kidney disease (Acute) Viral pneumonia (Acute) - VTE Risk Labs: VTE Related Lab Results Hgb 11.0 g/dL (12.2-16.2) L D 04/24/20 05:15 Hct 35.3 % (37.0-47.0) L 04/24/20 05:15 Plt Count 267 K/mm3 (142-424) 04/24/20 05:15 BUN 12 mg/dl (7-17) 04/24/20 05:15 Creatinine 1.10 mg/dl (0.52-1.04) H 04/24/20 05:15 Estimated Creat Clear 39 mL/min (50-200) 04/24/20 05:15 - Prophylaxis Location of Applied Device: Not Applicable Pharmacologic Type: Enoxaparin (LOVENOX ORDERED)
[2020-04-25] VITALS (12 sets, daily range): BP systolic 109–146; BP diastolic 46–67; PULSE 81–99; RESP 16–20; TEMP 36.6–37.7; O2SAT 90–97; BMI 23.3
--- NOTE | 2020-04-25 05:45 | PC.NURSE ---
Addendum entered by Clali Kendall RN 04/25/20 06:34: Pt has had one additional large, loose brown stool this shift Original Note: Pt is A&Ox4. Pt has rested well this shift. Pt has been between 3-4 L NC this shift. And is currently 95% 3L. Pt has had one large, loose BM this shift. Grier cath is draining cloudy, yellow urine with sediment per gravity. NO other acute changes or complaints at this time.
[2020-04-25 06:20] LABS: Basophils % 0.5 % (0.1-2.0); Hematocrit 32.7 % (37.0-47.0); Hemoglobin 10.4 g/dL (12.2-16.2); Lymphocytes # 0.8 K/mm3 (0.7-4.5); Lymphocytes % 14.8 % (10-50); Mean Corpuscular HGB Conc 31.9 g/dL (31.8-35.4); Mean Corpuscular Hemoglobin 31.8 pg (27.0-31.2); Mean Corpuscular Volume 99.6 fl (81-99); Mean Platelet Volume 9.5 fl (7.4-10.4); Monocytes # 0.4 K/mm3 (0.1-1.0); Monocytes % 7.2 % (1.7-9.3); Neutrophils % 77.5 % (37.0-80.0); Platelet Count 266 K/mm3 (142-424); Red Blood Count 3.28 M/mm3 (4.20-5.40); Red Cell Distribution Width 14.3 % (11.5-17.5); White Blood Count 5.2 K/mm3 (4.8-10.8)
[2020-04-25 06:37] LABS: Anion Gap 10.8 mEq/L (5-15); Blood Urea Nitrogen 10 mg/dl (7-17); Calcium 7.2 mg/dl (8.4-10.2); Carbon Dioxide 21 mmol/L (22.0-30.0); Chloride 108 mmol/L (98-107); Creatinine Clearance Estimated 43 mL/min (50-200); Estimated Glomerular Filt Rate 54 ml/min (>60); GFR (African American) 65 ML/MIN (>60); Glucose 84 mg/dl (74-100); Potassium 3.8 mmoL/L (3.5-5.1); Sodium 136 mmol/L (136-145)
--- NOTE | 2020-04-25 07:49 | P.PN_ITS ---
Internal Medicine - PN: Subj *Date: 04/25/20 *Time: 07:49 Interval history: Patient has no complaints this morning. She denies shortness of breath. Her cough remains dry and nonproductive. Nursing reports a temporary increase in nasal cannula flow to 4 L overnight but currently she is on 3 L with O2 sats in the low to mid 90s. Exam Vital signs and Labs for Last 24 Hours: Temp Pulse Resp BP Pulse Ox 98.9 F 81 19 146/65 H 95 04/25/20 04:00 04/25/20 04:00 04/25/20 04:00 04/25/20 04:00 04/25/20 04:00 Laboratory Results - last 24 hr 04/25/20 04:20: WBC 5.2, RBC 3.28 L, Hgb 10.4 L, Hct 32.7 L, MCV 99.6 H, MCH 31.8 H, MCHC 31.9, RDW 14.3, Plt Count 266, MPV 9.5, Neut % (Auto) 77.5, Lymph % (Auto) 14.8, [place] % (Auto) 7.2, Eos % (Auto) 0.0 L, Baso % (Auto) 0.5, Neut # (Auto) 4.0, Lymph # (Auto) 0.8, [place] # (Auto) 0.4, Eos # (Auto) 0.0, Baso # (A uto) 0.0 04/25/20 04:20: Sodium 136, Potassium 3.8, Chloride 108 H, Carbon Dioxide 21 L, Anion Gap 10.8, BUN 10, Creatinine 1.00, Estimated Creat Clear 43, Estimated GFR 54 L, Est GFR ( Amer) 65, Glucose 84, Calcium 7.2 L I & O for Last 24 hours: Intake & Output 04/22/20 04/23/20 04/24/20 04/25/20 11:59 11:59 11:59 11:59 Intake Total 1460 / 1460 1911 Output Total 2049 Balance 1460 / 1460 -138 / -138 Weight 150 lb 130 lb 6 oz 131 lb 9.6 oz Narrative: Patient looks comfortable. She shows no signs of increased work of breathing. Lung exam reveals bibasilar rales but no wheezing this morning. Heart has a regular rate and rhythm. Lower extremities have no edema. Grier catheter is anchored. Assessment and Plan (1) Viral pneumonia Status: Acute Category: Medical Code(s): J12.9 - Viral pneumonia, unspecified (2) COPD (chronic obstructive pulmonary disease) Status: Acute Category: Medical Code(s): J44.9 - Chronic obstructive pulmonary disease, unspecified (3) History of stroke Status: Acute Category: Medical Code(s): Z86.73 - Personal history of transient ischemic attack (TIA), and cerebral infarction without residual deficits (4) Hemiplegia affecting dominant side, post-stroke Status: Acute Category: Medical Code(s): I69.359 - Hemiplegia and hemiparesis following cerebral infarction affecting unspecified side (5) Acute hypoxemic respiratory failure Status: Acute Category: Medical Code(s): J96.01 - Acute respiratory failure with hypoxia (6) COVID-19 virus infection Status: Acute Category: Medical Code(s): U07.1 - COVID-19 (7) Stage 3b chronic kidney disease Status: Acute Category: Medical Code(s): N18.32 - Chronic kidney disease, stage 3b - Assessment and plan all Dx Assessment and Plan for all problems:: 1. Patient is showing signs of improvement and we will continue remdesivir and dexamethasone along with Rocephin and azithromycin
--- NOTE | 2020-04-25 18:21 | PC.NURSE ---
pt has done well today. no acute changes. 3LNC continues. vss. will cont. to monitor.
[2020-04-26] VITALS (8 sets, daily range): BP systolic 124–170; BP diastolic 56–76; PULSE 83–104; RESP 16–24; TEMP 36.3–38.1; O2SAT 88–97; BMI 23.9; BMI 23.8
--- NOTE | 2020-04-26 03:47 | PC.NURSE ---
Addendum entered by Calli Kendall RN 04/26/20 05:38: 0500-pt weaned down to 3L NC. Currently satting @ 92% and sleeping Addendum entered by Calli Kendall RN 04/26/20 04:28: 0425-pt o2 sat dropped to 78%, and sustained at 81-82% for 3+ minutes. At this time, pt was sleeping and breathing was nonlabored. Pt brought up to 4L NC and is currently sustaining 88%. Pt was also febrile @ 0400 checks. Temp was 100.5. PRN Acetaminophen administered per MAR. Will continue to monitor. Original Note: Pt has rested well this shift. Pt has remained on 3L NC the entire shift w/ o2 sats between 90-93%. Expiratory wheezing heard @ bilat upper lobes w/ scattered inspiratory rhonch t/o. Pt has had x2 loose, brown bowel movements this shift. Grier cath continues to drain clear, bright yellow urine per gravity. PIV in LAC remains patent and SL. No other acute changes or complaints at this time.
[2020-04-26 06:15] LABS: Basophils % 0.3 % (0.1-2.0); Eosinophils % 0.1 % (0.1-12.0); Hematocrit 33.1 % (37.0-47.0); Hemoglobin 10.5 g/dL (12.2-16.2); Lymphocytes # 0.7 K/mm3 (0.7-4.5); Lymphocytes % 11.3 % (10-50); Mean Corpuscular HGB Conc 31.6 g/dL (31.8-35.4); Mean Corpuscular Hemoglobin 32.1 pg (27.0-31.2); Mean Corpuscular Volume 101.5 fl (81-99); Mean Platelet Volume 8.9 fl (7.4-10.4); Monocytes # 0.5 K/mm3 (0.1-1.0); Monocytes % 7.7 % (1.7-9.3); Neutrophils # 4.9 K/mm3 (1.8-7.8); Neutrophils % 80.6 % (37.0-80.0); Platelet Count 305 K/mm3 (142-424); Red Blood Count 3.26 M/mm3 (4.20-5.40); Red Cell Distribution Width 14.5 % (11.5-17.5); White Blood Count 6.1 K/mm3 (4.8-10.8)
[2020-04-26 06:17] LABS: Anion Gap 8.7 mEq/L (5-15); Blood Urea Nitrogen 10 mg/dl (7-17); Carbon Dioxide 24 mmol/L (22.0-30.0); Chloride 108 mmol/L (98-107); Creatinine Clearance Estimated 45 mL/min (50-200); Estimated Glomerular Filt Rate 61 ml/min (>60); GFR (African American) 73 ML/MIN (>60); Glucose 97 mg/dl (74-100); Potassium 3.7 mmoL/L (3.5-5.1); Sodium 137 mmol/L (136-145)
--- NOTE | 2020-04-26 06:22 | HMH.ACPN2 ---
Internal Medicine - PN: Subj *Date: 04/26/20 *Time: 06:22 Interval history: Patient continues to deny shortness of breath. Nursing staff reports of desaturation into the high 70s early this morning that responded to a temporary increase in oxygen to 4 L/min. Patient has now been weaned back down to 3 and is stable. Exam Vital signs and Labs for Last 24 Hours: Temp Pulse Resp BP Pulse Ox 100.5 F H 84 20 124/60 93 L 04/26/20 04:00 04/26/20 04:00 04/26/20 04:00 04/26/20 04:00 04/26/20 04:00 Laboratory Results - last 24 hr 04/25/20 04:20: WBC 5.2, RBC 3.28 L, Hgb 10.4 L, Hct 32.7 L, MCV 99.6 H, MCH 31.8 H, MCHC 31.9, RDW 14.3, Plt Count 266, MPV 9.5, Neut % (Auto) 77.5, Lymph % (Auto) 14.8, [place] % (Auto) 7.2, Eos % (Auto) 0.0 L, Baso % (Auto) 0.5, Neut # (Auto) 4.0, Lymph # (Auto) 0.8, [place] # (Auto) 0.4, Eos # (Auto) 0.0, Baso # (Auto) 0.0 04/25/20 04:20: Sodium 136, Potassium 3.8, Chloride 108 H, Carbon Dioxide 21 L, Anion Gap 10.8, BUN 10, Creatinine 1.00, Estimated Creat Clear 43, Estimated GFR 54 L, Est GFR ( Amer) 65, Glucose 84, Calcium 7.2 L 04/26/20 05:15: WBC 6.1, RBC 3.26 L, Hgb 10.5 L, Hct 33.1 L, MCV 101.5 H, MCH 32.1 H, MCHC 31.6 L, RDW 14.5, Plt Count 305, MPV 8.9, Neut % (Auto) 80.6 H, Lymph % (Auto) 11.3, [place] % (Auto) 7.7, Eos % (Auto) 0.1, Baso % (Auto) 0.3, Neut # (Auto) 4.9, Lymph # (Auto) 0.7, [place] # (Auto) 0.5, Eos # (Auto) 0.0, Baso # (Auto) 0.0 04/26/20 05:15: Sodium 137, Potassium 3.7, Chloride 108 H, Carbon Dioxide 24, Anion Gap 8.7, BUN 10, Creatinine 0.90, Estimated Creat Clear 45, Estimated GFR 61, Est GFR ( Amer) 73, Glucose 97, Calcium 7.0 L I & O for Last 24 hours: Intake & Output 04/23/20 04/24/20 04/25/20 04/26/20 11:59 11:59 11:59 11:59 Intake Total 1460 / 1460 2031 / 2031 480 / 480 Output Total 2049 / 2049 1700 / 1700 Balance 1460 / 1460 -18 / -18 -1220 / -1220 Weight 150 lb 130 lb 6 oz 131 lb 9.6 oz 135 lb 3.2 oz Microbiology Reports for the Last 24 Hours: Microbiology 04/23/20 10:00 Blood Blood Culture - Preliminary NO GROWTH AFTER 48 HOURS 04/23/20 10:00 Blood Blood Culture - Preliminary NO GROWTH AFTER 48 HOURS Narrative: Patient appears comfortable this morning. She is laying primarily on her right side. Oropharynx is moist and clear. Neck is supple. Lungs have right-sided rhonchi heard in the lateral lower lung with rales posteriorly. No wheezing at this time. Heart has a regular rate and rhythm. Abdomen is soft. Lower extremities have no edema. Assessment and Plan (1) Viral pneumonia Status: Acute Category: Medical Code(s): J12.9 - Viral pneumonia, unspecified (2) COPD (chronic obstructive pulmonary disease) Status: Acute Category: Medical Code(s): J44.9 - Chronic obstructive pulmonary disease, unspecified (3) History of stroke Status: Acute Category: Medical Code(s): Z86.73 - Personal history of transient ischemic attack (TIA), and cerebral infarction without residual deficits (4) Hemiplegia affecting dominant side, post-stroke Status: Acute Category: Medical Code(s): I69.359 - Hemiplegia and hemiparesis following cerebral infarction affecting unspecified side (5) Acute hypoxemic respiratory failure Status: Acute Category: Medical Code(s): J96.01 - Acute respiratory failure with hypoxia (6) COVID-19 virus infection Status: Acute Category: Medical Code(s): U07.1 - COVID-19 (7) Stage 3b chronic kidney disease Status: Acute Category: Medical Code(s): N18.32 - Chronic kidney disease, stage 3b - Assessment and plan all Dx Assessment and Plan for all problems:: 1. Continue remdesivir, dexamethasone, azithromycin, Rocephin 2. Add incentive spirometry
--- NOTE | 2020-04-26 06:58 | PC.NURSE ---
Incentive Spirometer placed in pt's room.Pt educated on use and benefits of IS. Pt verbalized understanding. IS currently on bedside table while pt is receiving a neb tx.
--- NOTE | 2020-04-26 19:00 | PC.NURSE ---
A&Ox4. Pt has tolerated 3L NC well throughout shift. Respirations regular and unlabored. Lung sounds bilaterally clear. No cough noted this shift. Grier catheter intact draining clear, dark urine. No kinks noted. Active bowel sounds heard in all 4 quadrants. Soft and nontender abdomen. 1 bm noted while under this nurses care. NS infusing at 100 ml/hr. Pt has had a poor appetite and has been encouraged to drink several times throughout the shift. L side flaccid from hx of previous CVA. +2 pulses noted throughout. No edema noted. No reports of pain or SOB. Pt is currently lying in bed w call light within reach. Bed alarm on to promote safety. Bed in lowest position. VSS. Will continue to monitor.
[2020-04-27] VITALS (12 sets, daily range): BP systolic 116–155; BP diastolic 59–72; PULSE 88–121; RESP 18–23; TEMP 36.8–38.2; O2SAT 88–95; BMI 23.2
--- NOTE | 2020-04-27 05:07 | PC.NURSE ---
A&Ox4. Respirations regular and unlabored. Wheezing noted on expiratory and on inspiration with fine crackles in bottom lobes. No cough noted at this time shift. FC in place draining Active bowel sounds x 4 quadrants. 20g in LAC C/D/I. No edema noted; B/L pedal pulses noted. Denies pain or SOB. Call light within reach. Bed alarm on for safety; Bed in lowest position. VSS. Will continue to monitor.
--- NOTE | 2020-04-27 05:20 | PC.NURSE ---
IS was used this shift and pt was able to reach 500.
--- NOTE | 2020-04-27 05:25 | PC.NURSE ---
pt did have a temp of 100.2 and tylenol was given. rechecked and temp was 99.2. will continue to monitor
--- NOTE | 2020-04-27 06:43 | HMH.ACPN2 ---
Internal Medicine - PN: Subj *Date: 04/27/20 *Time: 06:43 Interval history: Patient states she wants to go home. She denies shortness of breath. Nursing staff reports low-grade temp to 100.2 overnight which have been occurring since admission. Exam Vital signs and Labs for Last 24 Hours: Temp Pulse Resp BP Pulse Ox 99.1 F 91 H 20 130/71 95 04/27/20 04:00 04/27/20 04:00 04/27/20 04:00 04/27/20 04:00 04/27/20 04:00 I & O for Last 24 hours: Intake & Output 04/24/20 04/25/20 04/26/20 04/27/20 11:59 11:59 11:59 11:59 Intake Total 1460 / 1460 2031 / 2031 600 / 600 460 / 460 Output Total 2049 / 2049 1700 / 1700 1600 / 1600 Balance 1460 / 1460 -18 / -18 -1100 / -1100 -1140 / -1140 Weight 130 lb 6 oz 131 lb 9.6 oz 135 lb 3.2 oz 131 lb 1 oz Narrative: Patient is in no distress. She is comfortable on 2-1/2 L/min via nasal cannula. Lungs have right base and right posterior midlung rales. Heart has a regular rate and rhythm. Abdomen is soft Assessment and Plan (1) Viral pneumonia Status: Acute Category: Medical Code(s): J12.9 - Viral pneumonia, unspecified (2) COPD (chronic obstructive pulmonary disease) Status: Acute Category: Medical Code(s): J44.9 - Chronic obstructive pulmonary disease, unspecified (3) History of stroke Status: Acute Category: Medical Code(s): Z86.73 - Personal history of transient ischemic attack (TIA), and cerebral infarction without residual deficits (4) Hemiplegia affecting dominant side, post-stroke Status: Acute Category: Medical Code(s): I69.359 - Hemiplegia and hemiparesis following cerebral infarction affecting unspecified side (5) Acute hypoxemic respiratory failure Status: Acute Category: Medical Code(s): J96.01 - Acute respiratory failure with hypoxia (6) COVID-19 virus infection Status: Acute Category: Medical Code(s): U07.1 - COVID-19 (7) Stage 3b chronic kidney disease Status: Acute Category: Medical Code(s): N18.32 - Chronic kidney disease, stage 3b (8) Cigarette smoker Status: Acute Category: Social Hx Code(s): F17.210 - Nicotine dependence, cigarettes, uncomplicated - Assessment and plan all Dx Assessment and Plan for all problems:: 1. Continue Remdesivir, dexamethasone, nutritional supplementation, azithromycin and Rocephin 2. If patient maintains O2 sats on 2 to 3 L of oxygen anticipate discharge home tomorrow
[2020-04-27 07:11] LABS: Basophils % 0.3 % (0.1-2.0); Eosinophils % 0.3 % (0.1-12.0); Hematocrit 35.4 % (37.0-47.0); Hemoglobin 10.9 g/dL (12.2-16.2); Lymphocytes # 0.8 K/mm3 (0.7-4.5); Lymphocytes % 9.4 % (10-50); Mean Corpuscular HGB Conc 30.9 g/dL (31.8-35.4); Mean Corpuscular Hemoglobin 31.5 pg (27.0-31.2); Mean Platelet Volume 8.1 fl (7.4-10.4); Monocytes # 0.6 K/mm3 (0.1-1.0); Monocytes % 6.6 % (1.7-9.3); Neutrophils % 83.5 % (37.0-80.0); Platelet Count 360 K/mm3 (142-424); Red Blood Count 3.47 M/mm3 (4.20-5.40); Red Cell Distribution Width 14.5 % (11.5-17.5); White Blood Count 8.4 K/mm3 (4.8-10.8)
[2020-04-27 07:26] LABS: Anion Gap 7.8 mEq/L (5-15); Blood Urea Nitrogen 10 mg/dl (7-17); Calcium 7.1 mg/dl (8.4-10.2); Carbon Dioxide 27 mmol/L (22.0-30.0); Chloride 107 mmol/L (98-107); Creatinine Clearance Estimated 44 mL/min (50-200); Estimated Glomerular Filt Rate 61 ml/min (>60); GFR (African American) 73 ML/MIN (>60); Glucose 104 mg/dl (74-100); Potassium 3.8 mmoL/L (3.5-5.1); Sodium 138 mmol/L (136-145)
[2020-04-27 07:31] LABS: C-Reactive Protein 186.3 mg/L (0-4)
--- NOTE | 2020-04-27 13:52 | PC.NURSE ---
Sputum cup given with instructions on producing a sample.
--- NOTE | 2020-04-27 15:40 | P.PN_ITS ---
Internal Medicine - PN: Subj *Date: 04/27/20 *Time: 15:40 Exam Vital signs and Labs for Last 24 Hours: Temp Pulse Resp BP Pulse Ox 100.4 F H 92 H 18 155/67 H 92 L 04/27/20 11:48 04/27/20 13:51 04/27/20 11:48 04/27/20 11:48 04/27/20 13:51 Laboratory Results - last 24 hr 04/27/20 06:40: WBC 8.4 D, RBC 3.47 L, Hgb 10.9 L, Hct 35.4 L, MCV 102.0 H, MCH 31.5 H, MCHC 30.9 L, RDW 14.5, Plt Count 360, MPV 8.1, Neut % (Auto) 83.5 H, Lymph % (Auto) 9.4 L, [place] % (Auto) 6.6, Eos % (Auto) 0.3, Baso % (Auto) 0.3, Neut # (Auto) 7.0, Lymph # (Auto) 0.8, [place] # (Auto) 0.6, Eos # (Auto) 0.0, Baso # (Auto) 0.0 04/27/20 06:40: Sodium 138, Potassium 3.8, Chloride 107, Carbon Dioxide 27, Anion Gap 7.8, BUN 10, Creatinine 0.90, Estimated Creat Clear 44, Estimated GFR 61, Est GFR ( Amer) 73, Glucose 104 H, Calcium 7.1 L, C-Reactive Protein 186.3 H I & O for Last 24 hours: Intake & Output 04/24/20 04/25/20 04/26/20 04/27/20 23:59 23:59 23:59 23:59 Intake Total 1640 / 3252 1971 / 2211 820 / 820 840 / 840 Output Total 1450 / 0 1700 / 2300 1800 / 1800 400 / 400 Balance 190 / 1202 272 / -88 -980 / -980 440 / 440 Weight 59.137 kg 59.693 kg 61 kg 59.449 kg Assessment and Plan (1) Viral pneumonia Status: Acute Category: Medical Code(s): J12.9 - Viral pneumonia, unspecified (2) COPD (chronic obstructive pulmonary disease) Status: Acute Category: Medical Code(s): J44.9 - Chronic obstructive pulmonary disease, unspecified (3) History of stroke Status: Acute Category: Medical Code(s): Z86.73 - Personal history of transient ischemic attack (TIA), and cerebral infarction without residual deficits (4) Hemiplegia affecting dominant side, post-stroke Status: Acute Category: Medical Code(s): I69.359 - Hemiplegia and hemiparesis following cerebral infarction affecting unspecified side (5) Acute hypoxemic respiratory failure Status: Acute Category: Medical Code(s): J96.01 - Acute respiratory failure with hypoxia (6) COVID-19 virus infection Status: Acute Category: Medical Code(s): U07.1 - COVID-19 (7) Stage 3b chronic kidney disease Status: Acute Category: Medical Code(s): N18.32 - Chronic kidney disease, stage 3b (8) Cigarette smoker Status: Acute Category: Social Hx Code(s): F17.210 - Nicotine dependence, cigarettes, uncomplicated The patient's infection will respond to the chosen ABx?: Yes Is the patient receiving the right drug, dose, and route?: Yes Could a more targeted ABx be ordered?: No
--- NOTE | 2020-04-27 15:49 | HMH.PHAINT ---
5 DAYS OF REMDESIVIR COMPLETE. [address] WINN DOES NOT WANT TO CONTINUE 5 MORE DAYS OF REMDESIVIR AT THIS TIME.
--- NOTE | 2020-04-27 18:14 | PC.NURSE ---
ATTEMPTED TO GIVE VITAMIN C X2 THIS EVENING, PT REFUSED BOTH TIMES.
--- NOTE | 2020-04-27 20:08 | PC.NURSE ---
SHE IS AOX4, ABLE TO MAKE MOST NEEDS KNOWN TO STAFF, SHE DOES HAVE TROUBLE HEARING AT TIMES, SHE DOES HAVE A SLIGHT SPEECH DEFICIT. SHE HAS NOT C/O PAIN T/O SHIFT. DENIES N/V/D, SHE DID SPIKE A FEVER THIS AFTERNOON AND WAS TREATED WITH PRN TYLENOL PER MAR WITH GOOD EFFECTIVENESS. SHE IS ABLE TO TOLERATE DIET ORDERED. NAVARRETE IS DRAINING CLEAR YELLOW URINE. ABD SOFT AND NON-TENDER. INSPIRATORY AND EXPIRATORY RHONCHI NOTED T/O ON AUSCULTATION. NO NEEDS AT THIS TIME. WILL CONTINUE TO MONITOR.
[2020-04-28] VITALS: BP 113/62; PULSE 97; RESP 20; TEMP 38; O2SAT 92
[2020-04-28 04:00] VITALS: BP 146/72; PULSE 101; RESP 19; TEMP 36.9; O2SAT 91
[2020-04-28 05:00] VITALS: BMI 23.0
--- NOTE | 2020-04-28 05:48 | PC.NURSE ---
Pt is A&O x4 but is very hard of hearing and communication is difficult. Pt slept well through the night with no c/o pain or difficulty breathing. Sats have been in the low 90s on 2L NC. Lung sounds are diminished with rhonchi noted and a nonproductive cough. Pt had a max temp of 100.8 for which tylenol was administered per JUN. Pt had difficulty swallowing pills but had no problems when taken with thickened water/crushed in apple sauce. Will recommend a swallow eval to dayshift RN. Grier is in place draining clear yellow urine. Abd soft and nontender, pt had one episode of bowel incontinence. VSS, call light in reach. No concerns at this time.
[2020-04-28 06:45] VITALS: PULSE 85; PULSE 87; O2SAT 90
--- NOTE | 2020-04-28 06:58 | HMH.DCSUM ---
General - General Admission date:: 04/23/20 Discharge date: 04/28/20 HPI HPI: 79 year old female with history of CVA and COPD with continued cigarette use presented to the ER with worsening dyspnea related to known Covid-19 diagnosed on 04/20/19. Patient had been using oxygen at home but today oxygen saturations were in the mid 80's on 2l/min via NC and family was instructed to bring the patient to the ER. In the ER patient had desaturations that responded to increase in supplemental oxygen to 3 L/min with sats in the low to mid 90's. Patient has been admitted for Covid pneumonia wiht acute respiratory failure. Hospital Course Hospital Course: Patient was admitted for oxygen support due to hypoxia with confirmed COVID-19. X-ray showed COVID-19 pneumonia. Patient was admitted and started on Covid appropriate therapy of remdesivir, dexamethasone, coverage for superimposed pneumonia with Rocephin and azithromycin. Patient remained stable during hospitalization and at the beginning of hospitalization required slight increase in supplemental oxygen to 3 to 4 L/min. After the first 72 hours of hospitalization patient was able to be weaned and remained stable with O2 sats in the 90s between 2 and 3 L/min. As hospitalization progressed patient's cough became loose. During the entire hospitalization patient had rales and rhonchi in the right lung camacho. After 5 days of treatment with antivirals and antibiotics along with a stable clinical course patient was discharged home. Patient will follow-up in the office on an as-needed basis. O2 sats were between 90 and 94% on 2 L of nasal cannula over the last 24 hours prior to discharge Objective Vital signs: Temp Pulse Resp BP Pulse Ox 98.5 F 87 19 146/72 H 90 L 04/28/20 04:00 04/28/20 06:45 04/28/20 04:00 04/28/20 04:00 04/28/20 06:45 no acute distress - *Routine Respiratory Exam Present: rhonchi (Right lung) - *Routine Cardiovascular Exam Present: RRR Results Labs on day of discharge: Labs from last 24 hours 04/27/20 04/27/20 06:40 06:40 WBC 8.4 D RBC 3.47 L Hgb 10.9 L Hct 35.4 L MCV 102.0 H MCH 31.5 H MCHC 30.9 L RDW 14.5 Plt Count 360 MPV 8.1 Neut % (Auto) 83.5 H Lymph % (Auto) 9.4 L [place] % (Auto) 6.6 Eos % (Auto) 0.3 Baso % (Auto) 0.3 Neut # (Auto) 7.0 Lymph # (Auto) 0.8 [place] # (Auto) 0.6 Eos # (Auto) 0.0 Baso # (Auto) 0.0 Sodium 138 Potassium 3.8 Chloride 107 Carbon Dioxide 27 Anion Gap 7.8 BUN 10 Creatinine 0.90 Estimated Creat Clear 44 Estimated GFR 61 Est GFR ( Amer) 73 Glucose 104 H Calcium 7.1 L C-Reactive Protein 186.3 H Preliminary micro results at discharge 04/23/20 10:00 Blood Culture - Preliminary Blood NO GROWTH AFTER 48 HOURS 04/23/20 10:00 Blood Culture - Preliminary Blood NO GROWTH AFTER 48 HOURS DS: Diagnosis - Discharge Diagnosis (1) Viral pneumonia Status: Acute (2) COPD (chronic obstructive pulmonary disease) Status: Acute (3) History of stroke Status: Acute (4) Hemiplegia affecting dominant side, post-stroke Status: Acute (5) Acute hypoxemic respiratory failure Status: Acute (6) COVID-19 virus infection Status: Acute (7) Stage 3b chronic kidney disease Status: Acute (8) Cigarette smoker Status: Acute Discharge Plan - Patient Discharge Instructions ACTIVITY: Continue current activity DIET: continue same diet - Follow up Plan Disposition: Home, Self-Usp Medications: Home Medications Medication Instructions Recorded Confirmed Type phenytoin sodium extended 100 mg 100 mg PO TID 07/06/17 04/23/20 History capsule Phenytoin [Dilantin 50mg Chewable 50 mg PO QODHS 08/21/17 04/23/20 History Tablet] Fluticasone/Vilanterol [Breo 1 each IH DAILY 08/31/17 04/24/20 History Ellipta 100-25 Mcg INH] Cyanocobalamin (Vitamin B-12) 1,000 mcg PO DA
[2020-04-28 08:00] VITALS: BP 127/62; PULSE 101; RESP 16; RESP 20; TEMP 37.2; TEMP 37.8; O2SAT 93
--- NOTE | 2020-04-28 08:46 | PC.NURSE ---
Spoke to [facility], they will be bringing a portable O2 tank for pt to go home w/
== END 2020-04-28 10:20 | disposition home or self-care (01) | DRG 177 ==
LOC: ER 11:49 → ICU 18:34 → 2ND 04-26 14:42
PROVIDERS: Admitting Provider Family Medicine; Emergency Provider Emergency Medicine; PCP Family Medicine; Visit Provider Family Medicine
DX: U07.1 COVID-19 (principal); J12.82 Pneumonia due to coronavirus disease 2019; J96.01 Acute respiratory failure with hypoxia; I69.351 Hemiplegia and hemiparesis following cerebral infarction affecting right dominant side; J44.9 Chronic obstructive pulmonary disease, unspecified; Z99.81 Dependence on supplemental oxygen; Z72.0 Tobacco use; Z79.51 Long term (current) use of inhaled steroids; Z79.52 Long term (current) use of systemic steroids; Z79.01 Long term (current) use of anticoagulants; Z79.899 Other long term (current) drug therapy; I69.328 Other speech and language deficits following cerebral infarction
CPT/HCPCS: 36415; 71045; 80048; 80053; 80076; 81001; 83605; 84145; 84484; 85025; 86140; 87040; 93005; 94640; 94761; 96365; 96367; 99285; J0456; U0003

== ENCOUNTER 2020-05-14 16:23 | Emergency (ER) | payer MEDICARE, MEDICAID, SELFPAY ==
[2020-05-14 16:24] VITALS: BP 154/75; PULSE 97; RESP 26; TEMP 36.8; O2SAT 97; BMI 24.7
--- NOTE | 2020-05-14 16:37 | CT_ITS ---
PROCEDURE: CT ABDOMEN PELVIS WO CON CLINICAL INDICATION: diarrhea, nausea Nausea, vomiting, COMPARISON: MR WINTER MR abdomen wo con from 08/02/2017 TECHNIQUE: Axial images obtained with sagittal and coronal reformats. All CT scans at the facility use one or more dose reduction, viz: automated exposure control, ma/kV adjustment per patient size (including targeted exams where dose is matched to indication, i.e. head), or iterative reconstruction technique. FINDINGS: LOWER THORAX: Consolidation is present in the right lower lobe consistent with pneumonia. Small area of consolidation is present in the left lower lobe posteriorly and left lower lobe anteriorly as well as the lingula. The right lower lobe consolidation is incompletely imaged. ABDOMEN & PELVIS: The liver, spleen, right adrenal gland, and pancreas have an unremarkable appearance. Left adrenal gland is slightly enlarged maintaining an adrenal form shape. Subtle hyperdensity noted in the neck of the gallbladder may be due to stones and/or sludge. Previous MRI did suggest cholelithiasis. Motion artifact somewhat obscures fine detail. There is an infrarenal abdominal aortic aneurysm fusiform in nature measuring up to 3.3 cm in diameter. No renal or ureteral calculi. No hydronephrosis. Bowel gas pattern is nonspecific. There is mild diffuse thickening of the ascending colon and hepatic flexure suspicious for colitis. There is also thickened appearance of the descending and sigmoid colon which could be due to colitis or nondistention. No evidence of appendicitis. The gastric wall also appears thickened but may be due to nondistention. There are few air-fluid levels within the small bowel without distention. The urinary bladder is somewhat distended. Artifact is present from right hip prosthesis. There is an old fracture of the left inferior pubic ramus there is mild diffuse sclerosis of the osseous structures with degenerative changes noted in the lumbar spine. Streak artifact is present from right hip prosthesis IMPRESSION: 1. Bilateral lower lobe pneumonia right greater than left. 2. Thickening of the colon as described above which may be due to colitis or nondistention. 3. Subtle hyperdensity in the neck of the gallbladder which may be due to stones and/or sludge 4. Diffuse sclerosis of the osseous structures. Differential diagnosis would include a renal osteodystrophy, neoplasm, and other less common entities. 5. 3.3 cm fusiform infrarenal abdominal aortic aneurysm Dictated by: George Navarrete MD 05/15/2020 06:46 George Navarrete MD in [place] 05/15/2020 06:46
--- NOTE | 2020-05-14 16:54 | HMH.EDNVD ---
ED Disposition Clinical Impression: Pancolitis, Acute UTI, COVID-19 Disposition: Home, Self-Care Condition on Discharge: Good Instructions: DI for Nausea -- Adult, DI for Colitis, DI for COVID-19 (Suspected or Confirmed ), DI for Urinary Tract Infection (UTI) Additional Instructions: Follow-up with your primary care provider in 2 to 3 days for reevaluation. You may benefit from GI follow-up to consider colonoscopy for further investigation into the source of your diarrhea, though this may be related to your Covid infection. Take antibiotics as prescribed for UTI. Return to the emergency department for any acute new concerns, abdominal pain. Prescriptions: Nitrofurantoin Monohyd/M-Cryst [Macrobid 100 mg Capsule] 100 mg PO BID #14 cap Transmission Status: Pending to [id number] Referrals: Lashonda James APRN [Primary Care Provider] - 3 days - Critical Care Critical Care Time: No Attestation: On 05/14/20, the high probability of a clinically significant, sudden or life threatening deterioration of the following system(s) required my full and direct attention, intervention and personal management. The time I documented below is in addition to time spent performing reported procedures but includes the following listed in this critical care notation. Medical Decision Making - Medical Records Medical records reviewed: Yes: I reviewed the patient's medical records. - Ricardo Inquiry Pt receiving controlled substance: No Vital Signs: 05/14/20 16:24 05/14/20 17:54 Temperature 98.3 F Temperature Source Oral Pulse Rate [Radial] 97 H 91 H Respiratory Rate 26 H Blood Pressure [Right Arm] 154/75 H 171/73 H Blood Pressure Mean [Right Arm] 101 105 Blood Pressure Source [Right Arm] Automatic Cuff Blood Pressure Position [Right Arm] Sitting Sitting 02 Sat by Pulse Oximetry 97 96 Oxygen Delivery Method Nasal Cannula Nasal Cannula Oxygen Flow Rate (LPM) 2 2 - Lab Data Lab results reviewed: Yes: I reviewed the patient's lab results. Lab Results 05/14/20 16:34: WBC Cancelled, Corrected WBC Cancelled, RBC Cancelled, Hgb Cancelled, Hct Cancelled, MCV Cancelled, MCH Cancelled, MCHC Cancelled, RDW Cancelled, Plt Count Cancelled, MPV Cancelled, Neut % (Auto) Cancelled, Lymph % (Auto) Cancelled, Power % (Auto) Cancelled, Eos % (Auto) Cancelled, Baso % (Auto) Cancelled, Neut # (Auto) Cancelled, Lymph # (Auto) Cancelled, Power # (Auto) Cancelled, Eos # (Auto) Cancelled, Baso # (Auto) Cancelled, Total Counted Cancelled, Neutrophils % (Manual) Cancelled, Band Neutrophils % Cancelled, Lymphocytes % (Manual) Cancelled, Atypical Lymphs % Cancelled, Monocytes % (Manual) Cancelled, Eosinophils % (Manual) Cancelled, Basophils % (Manual) Cancelled, Metamyelocytes % Cancelled, Myelocytes % Cancelled, Promyelocytes % Cancelled, Blast Cells % Cancelled, Nucleated RBCs Cancelled, Differential Comment Cancelled, Hypersegmented Neuts Cancelled, Toxic Granulation Cancelled, Toxic Vacuolation Cancelled, Dohle Bodies Cancelled, Karan Rods Cancelled, Platelet Estimate Cancelled, Giant Platelets Cancelled, RBC Morphology Cancelled, Polychromasia Cancelled, Hypochromasia Cancelled, Poikilocytosis Cancelled, Basophilic Stippling Cancelled, Anisocytosis Cancelled, Microcytosis Cancelled, Macrocytosis Cancelled, Spherocytes Cancelled, Pappenheimer Bodies Cancelled, Sickle Cells Cancelled, Target Cells Cancelled, Tear Drop Cells Cancelled, Ovalocytes Cancelled, Stomatocytes Cancelled, Helmet Cells Cancelled, Kohler-Big Arm Bodies Cancelled, [place] Rings Cancelled, Des Cells Cancelled, Acanthocytes (Spur) Cancelled, Rouleaux Cancelled, Schistocytes Cancelled 05/14/20 17:00: Sodium 134 L, Potassium 4.2, Chloride 102, Carbon Dioxide 29, Anion Gap 7.2, BUN 10, Creatinine 1.00, Estimated Creat Clear 46, Estimated GFR 54 L, Est GFR ( Amer) 65, Glucose 119 H, Calcium 7.9 L, Total Bilirubin 0.3, AST 17, ALT 10 L, Alkaline Phosphatase 303 H, Total Protein 7.4, Albumin
[2020-05-14 17:09] LABS: Carbon Dioxide 29 mmol/L (22.0-30.0); Creatinine Clearance Estimated 46 mL/min (50-200); Estimated Glomerular Filt Rate 54 ml/min (>60); GFR (African American) 65 ML/MIN (>60)
[2020-05-14 17:22] LABS: Microscopic, Urine URINE MICROSCOPIC (MICROSCOPIC)
[2020-05-14 17:29] LABS: Appearance,Urine CLEAR (Clear); Bilirubin,Urine Negative (Negative); Blood, Urine Negative (Negative); Color,Urine YELLOW (Yellow); Glucose,Urine (UA) Negative (Negative); Ketones,Urine Negative (Negative); Leukocyte Esterase,Urine Negative (Negative); Nitrate,Urine POSITIVE (Negative); Protein,Urine TRACE (Negative); Urobilinogen,Urine 0.2 EU/dl (0.2)
[2020-05-14 17:30] LABS: Basophils # 0.1 K/mm3 (0-0.2); Basophils % 0.7 % (0.1-2.0); Eosinophils # 0.2 K/mm3 (0.0-0.4); Eosinophils % 2.1 % (0.1-12.0); Hematocrit 36.7 % (37.0-47.0); Hemoglobin 11.3 g/dL (12.2-16.2); Lymphocytes # 1.2 K/mm3 (0.7-4.5); Lymphocytes % 13.3 % (10-50); Mean Corpuscular HGB Conc 30.9 g/dL (31.8-35.4); Mean Corpuscular Hemoglobin 30.9 pg (27.0-31.2); Mean Platelet Volume 7.3 fl (7.4-10.4); Monocytes # 0.6 K/mm3 (0.1-1.0); Monocytes % 6.4 % (1.7-9.3); Neutrophils % 77.6 % (37.0-80.0); Platelet Count 538 K/mm3 (142-424); Red Blood Count 3.67 M/mm3 (4.20-5.40); Red Cell Distribution Width 14.5 % (11.5-17.5)
[2020-05-14 17:31] LABS: Anion Gap 7.2 mEq/L (5-15); Chloride 102 mmol/L (98-107); Potassium 4.2 mmoL/L (3.5-5.1); Sodium 134 mmol/L (136-145)
[2020-05-14 17:32] LABS: Alanine Aminotransferase 10 U/L (12-78); Albumin Level 3.2 g/dl (3.5-5.0); Albumin/Globulin Ratio 0.8 (1.1-1.8); Alkaline Phosphatase 303 U/L (38-126); Aspartate Amino Transferase 17 U/L (14-36); Bilirubin,Total 0.3 mg/dl (0.2-1.3); Blood Urea Nitrogen 10 mg/dl (7-17); Calcium 7.9 mg/dl (8.4-10.2); Globulin 4.2 g/dL (1.3-3.2); Glucose 119 mg/dl (74-100); Lactic Acid 0.9 mmol/L (0.7-2.1); Total Protein,Serum 7.4 g/dl (6.3-8.2)
[2020-05-14 17:34] LABS: Amorphous Sediment,Urine 1+ /lpf; Bacteria,Urine Trace /lpf; Squamous Epithelial Cell,Urine 20-50 #/hpf (0-5)
[2020-05-14 17:54] VITALS: BP 171/73; PULSE 91; O2SAT 96
--- NOTE | 2020-05-14 18:30 | PC.NURSE ---
pt with small decub noted to coccyx polysquare dressing applied
--- NOTE | 2020-05-14 18:30 | PC.NURSE ---
pt and daughter up dated on plan of care
[2020-05-14 19:13] VITALS: BP 155/78; PULSE 78; RESP 16; TEMP 36.6; O2SAT 98
== END 2020-05-14 19:16 | disposition home or self-care (01) ==
PROVIDERS: Emergency Provider Emergency Medicine; PCP Nurse Practitioner Family
DX: K51.00 Ulcerative (chronic) pancolitis without complications (principal); U07.1 COVID-19; N30.00 Acute cystitis without hematuria; G40.909 Epilepsy, unspecified, not intractable, without status epilepticus; J44.9 Chronic obstructive pulmonary disease, unspecified; Z99.81 Dependence on supplemental oxygen; F17.210 Nicotine dependence, cigarettes, uncomplicated; Z79.899 Other long term (current) drug therapy
CPT/HCPCS: 74176; 80053; 81001; 83605; 85025; 96365; 96375; 99283; J2405

== ENCOUNTER → 2020-06-15 10:58 | Outpatient (CLI) | payer MEDICARE, MEDICAID, SELFPAY ==
--- NOTE | 2020-06-15 11:07 | XR_ITS ---
PROCEDURE: XR KNEE LT 3V CLINICAL INDICATION: ACUTE PAIN OF LT KNEE COMPARISON: CR [id number] KNEE-LIMITED 2 VIEWS-RT from 03/25/2014 CR [id number] KNEE-LIMITED 2 VIEWS-RT from 04/28/2014 CR [id number] KNEE-LIMITED 2 VIEWS-RT from 06/09/2014 CR XR KNEE LT 3V from 09/19/2019 FINDINGS: No fracture or dislocation. No lytic or blastic change. There is normal mineralization. There are mild tricompartmental osteoarthritic changes. Other findings:None. IMPRESSION: Mild osteoarthritis otherwise negative Dictated by: George Navarrete MD 06/15/2020 17:06 George Navarrete MD in [place] 06/15/2020 17:06
--- NOTE | 2020-06-15 11:08 | XR_ITS ---
PROCEDURE: XR RIBS RT MIN 3V W CXR1V CLINICAL INDICATION: RIB PAIN ON RT SIDE COMPARISON: DX XR CHEST 2V from 04/21/2019 CR XR CHEST PORTABLE from 04/20/2020 CR XR CHEST PORTABLE from 04/23/[address] ABDOMEN PELVIS WO CON from 05/14/2020 FINDINGS: Frontal view of the chest shows chronic changes with atelectatic or fibrotic change in the left lower lobe. Chronic changes are present in the right lower lobe with pulmonary fibrosis. No displaced rib fracture. No lytic or blastic change.. IMPRESSION: No acute finding of the ribs. Bilateral pulmonary fibrotic changes Dictated by: George Navarrete MD 06/15/2020 17:05 George Navarrete MD in [place] 06/15/2020 17:05
== END ==
PROVIDERS: PCP Nurse Practitioner Family; Visit Provider Nurse Practitioner Family
DX: R07.81 Pleurodynia (principal); M25.562 Pain in left knee
CPT/HCPCS: 71101; 73562

== ENCOUNTER → 2020-11-12 09:50 | Outpatient (CLI) | payer MEDICARE, MEDICAID, SELFPAY ==
--- NOTE | 2020-11-12 14:17 | XR_ITS ---
PROCEDURE: Barium swallow/esophagram CLINICAL INDICATION: difficulty swallow COMPARISON: No exams were available for comparison FINDINGS: Barium swallow was performed showing a small sliding hiatal hernia. No annular constricting lesions or polypoid filling defects are evident. No mucosal abnormalities are apparent. Patient was actually scheduled for an upper GI however, only barium swallow is performed and the patient will return for complete upper GI follow-up. IMPRESSION: Small sliding hiatal hernia otherwise negative barium swallow Dictated by: George Navarrete MD 11/22/2020 08:45 George Navarrete MD in [place] 11/22/2020 08:45
== END ==
PROVIDERS: PCP Nurse Practitioner Family; Visit Provider Surgery
DX: R13.10 Dysphagia, unspecified (principal)
CPT/HCPCS: 74240

== ENCOUNTER → 2020-11-15 11:53 | Outpatient (CLI) | payer MEDICARE, MEDICAID, SELFPAY ==
--- NOTE | 2020-11-15 12:00 | FL_ITS ---
PROCEDURE: FL UPPER GI SERIES W/O AIR CLINICAL INDICATION: difficulty swallow COMPARISON: No exams were available for comparison FINDINGS: There is a small sliding hiatal hernia. No ulcer or mass is evident. The stomach and duodenum have an unremarkable appearance. IMPRESSION: Small hiatal hernia otherwise negative Dictated by: George Navarrete MD 11/15/2020 15:51 George Navarrete MD in [place] 11/15/2020 15:51
--- NOTE | 2020-11-15 12:00 | FL_ITS ---
PROCEDURE: FL BARIUM SWALLOW MODIFIED CLINICAL INDICATION: difficulty swallowing COMPARISON: No exams were available for comparison TECHNIQUE: Patient administered varying consistencies of barium contrast, while viewed in lateral position under real-time fluoroscopy with cine recording. FLUOROSCOPY TIME:3.4 minutes The study was performed in conjunction with speech pathologist. Please see that report & recommendations. FINDINGS: Patient was given varying consistencies of barium. There was premature spillage over the back of the tongue with large volumes and premature spillage into vestibule with large volumes. The patient had difficulty taking small sips.. IMPRESSION: Mild impairment. No aspiration or penetration. Please see speech pathologist report and recommendations. Dictated by: George Navarrete MD 11/16/2020 15:19 George Navarrete MD in [place] 11/16/2020 15:19
--- NOTE | 2020-11-15 14:02 | HMH.SLMBS2 ---
Speech & Language Evaluation Speech/Language Mod Barium Swallow Start: 11/15/20 13:36 Freq: once Status: Complete Protocol: Document 11/15/20 13:36 LETTY (Rec: 11/15/20 14:02 LETTY [id number]) General Information General Current Food Consistancy Regular,Thin Liquids Dentition Upper & Lower Dentures Oxygen Status Room Air Facial Symmetry Asymmetrical Patient Orientation Person,Place,Time Ability to Follow Directions Excellent Communication Ability Moderate Impairment MBS Recommendations Diet Dietary Recommendations Regular,Thin Liquids Treatment/Strategies Strategy/Precaution Recommend Sitting Upright (90 deg),No Straw,Small Bites and Sips, Alternate Liquids/Solids Mod Barium Swallow Impressions Summary and Impressions Oral Phase Impression Mild Impairment Oral Phase Summary Ms. Mcnair exhibits a moderate impairment in the oral phase stage of swallowing characterized by premature spillage over the back of the tongue with large volumes. Ms. Mcnair has difficulty taking small amounts of boluses. Pharyngeal Phase Impression Mild Impairment Pharyngeal Phase Summary Premature spillage into the laryngeal vestibule was noted with thin liquids via straw. At this time, it is recommended Ms. Mcnair be placed on regular diet with thin liquids with no straw. Speech/Language MBS Assessment/Goals/Plan Assessment Date of Evaluation: 11/15/20 Evaluation Type Initial Certification Assessment/Problems Dysphagia Does Patient Qualify for Service No Qualify/Failure Comment Patient refused the idea of outpatient or home health speech therapy. Recommendations PHYSICIAN CERTIFICATION: The specified therapy services are required, authorized, and reviewed every 30 days. Diet Recommendations Normal Liquid Type Recommendations Normal/Thin SL Swallow Guidelines Standard Aspiration Prec. Dysphagia Swallow Precautions/Strategies No Straw,Small Bites and Sips, Alternate Liquids/Solids Plan Pt/Guardian verbally ack understanding Yes of dx/prognosis/goals G -code Required No Mod Barium Swallow Setup Exam Setup Radiologist George Navarrete Level of Consciousness Awake,Alemounika
== END ==
PROVIDERS: PCP Nurse Practitioner Family; Visit Provider Surgery
DX: R13.10 Dysphagia, unspecified (principal)
CPT/HCPCS: 70371; 74240; 92611

== ENCOUNTER → 2020-12-29 09:45 | Outpatient (CLI) | payer MEDICARE, MEDICAID, SELFPAY ==
--- NOTE | 2020-12-29 09:49 | XR_ITS ---
PROCEDURE: XR WRIST LT MIN 3V CLINICAL INDICATION: LT WRIST PAIN COMPARISON: No exams were available for comparison FINDINGS: There is a nondisplaced transverse fracture involving the distal shaft of the ulna 6 cm proximal to the tip of the ulna. Prominent osteoarthritic changes are present at the 1st carpal metacarpal junction with hypertrophic change of the lateral aspect of the trapezium with mild lateral subluxation of the 1st metacarpal. No obvious wrist fracture apparent. IMPRESSION: Nondisplaced distal ulna shaft fracture Degenerative changes of the wrist Dictated by: George Navarrete MD 12/29/2020 10:24 George Navarrete MD in [place] 12/29/2020 10:24
== END ==
PROVIDERS: PCP Nurse Practitioner Family; Visit Provider Nurse Practitioner Family
DX: M25.532 Pain in left wrist (principal)
CPT/HCPCS: 73110

== ENCOUNTER → 2021-01-05 11:31 | Outpatient (CLI) | payer MEDICARE, MEDICAID, SELFPAY ==
--- NOTE | 2021-01-05 11:36 | XR_ITS ---
PROCEDURE: XR FOREARM LT 2V CLINICAL INDICATION: LT wrist fracture COMPARISON: CR XR WRIST LT MIN 3V from 12/29/2020 FINDINGS: A cast is now in place. Nondisplaced fracture of the distal shaft of the ulna is once again noted with mild ulnar angulation of the distal fracture fragment. The joint spaces are well-preserved. No significant degenerative/arthritic changes. No erosive changes evident. Other findings:None. IMPRESSION: Status post casting otherwise no change nondisplaced ulnar fracture Dictated by: George Navarrete MD 01/05/2021 12:03 George Navarrete MD in [place] 01/05/2021 12:03
== END ==
PROVIDERS: PCP Nurse Practitioner Family; Visit Provider Orthopaedic Surgery
DX: S52.602A Unspecified fracture of lower end of left ulna, initial encounter for closed fracture (principal)
CPT/HCPCS: 73090

== ENCOUNTER → 2021-02-02 10:12 | Outpatient (CLI) | payer MEDICARE, MEDICAID, SELFPAY ==
--- NOTE | 2021-02-02 10:16 | XR_ITS ---
PROCEDURE: XR FOREARM LT 2V CLINICAL INDICATION: LT wrist fx COMPARISON: CR XR FOREARM LT 2V from 01/05/2021 FINDINGS: There is a nondisplaced transverse fracture involving the junction of the mid distal shaft of the ulna. The cast has been removed. There is some mild periosteal reaction and callus formation. The joint spaces are well-preserved. No significant degenerative/arthritic changes. No erosive changes evident. Other findings:None. IMPRESSION: Healing nondisplaced fracture of the mid to distal shaft of the ulna Dictated by: George Navarrete MD 02/02/2021 18:04 George Navarrete MD in [place] 02/02/2021 18:04
== END ==
PROVIDERS: PCP Nurse Practitioner Family; Visit Provider Orthopaedic Surgery
DX: S52.202A Unspecified fracture of shaft of left ulna, initial encounter for closed fracture (principal)
CPT/HCPCS: 73090

== ENCOUNTER → 2021-03-16 10:06 | Outpatient (CLI) | payer MEDICARE, MEDICAID, SELFPAY ==
--- NOTE | 2021-03-16 10:09 | XR_ITS ---
PROCEDURE: XR WRIST LT MIN 3V CLINICAL INDICATION: left wrist fracture follow up COMPARISON: CR XR WRIST LT MIN 3V from 12/29/2020 FINDINGS: There is a healing fracture involving the distal ulna with mild medial angulation of the distal fracture fragment. There is developing callus formation. Osteoarthritic changes are present at the 1st carpal metacarpal junction. IMPRESSION: Healing distal ulnar fracture Dictated by: George Navarrete MD 03/16/2021 16:48 George Navarrete MD in [place] 03/16/2021 16:48
== END ==
PROVIDERS: PCP Nurse Practitioner Family; Visit Provider Orthopaedic Surgery
DX: S52.202A Unspecified fracture of shaft of left ulna, initial encounter for closed fracture (principal)
CPT/HCPCS: 73110

== ENCOUNTER 2021-04-19 12:01 | Outpatient (CLI) | payer MEDICARE, MEDICAID, SELFPAY ==
[2021-04-19 12:09] VITALS: BMI 21.2
--- NOTE | 2021-04-19 12:12 | PC.NURSE ---
1212-collected cbc will wait for results
[2021-04-19 12:23] LABS: Basophils # 0.1 K/mm3 (0-0.2); Basophils % 0.9 % (0.1-2.0); Eosinophils # 0.2 K/mm3 (0.0-0.4); Eosinophils % 2.5 % (0.1-12.0); Hematocrit 28.3 % (37.0-47.0); Hemoglobin 8.1 g/dL (12.2-16.2); Lymphocytes # 1.4 K/mm3 (0.7-4.5); Lymphocytes % 16.4 % (10-50); Mean Corpuscular HGB Conc 28.5 g/dL (31.8-35.4); Mean Corpuscular Volume 101.6 fl (81-99); Mean Platelet Volume 7.8 fl (7.4-10.4); Monocytes # 0.6 K/mm3 (0.1-1.0); Monocytes % 6.8 % (1.7-9.3); Neutrophils # 6.4 K/mm3 (1.8-7.8); Neutrophils % 73.4 % (37.0-80.0); Platelet Count 762 K/mm3 (142-424); Red Blood Count 2.78 M/mm3 (4.20-5.40); Red Cell Distribution Width 17.8 % (11.5-17.5); White Blood Count 8.7 K/mm3 (4.8-10.8)
--- NOTE | 2021-04-19 12:45 | PC.NURSE ---
1245-carloz, nursing scheduler here at chair side to collect type and cross
== END 2021-04-19 12:48 | disposition home or self-care (01) ==
LOC: INF 12:03
PROVIDERS: PCP Family Medicine; Visit Provider Family Medicine
DX: D50.9 Iron deficiency anemia, unspecified (principal)
CPT/HCPCS: 36415; 85025; 86850

== ENCOUNTER 2021-04-20 09:06 | Outpatient (CLI) | payer MEDICARE, MEDICAID, SELFPAY ==
[2021-04-20] VITALS (10 sets, daily range): BP systolic 118–151; BP diastolic 57–75; PULSE 88–98; RESP 16; TEMP 36.2–36.7; O2SAT 96–99; BMI 20.9
--- NOTE | 2021-04-20 09:45 | PC.NURSE ---
0940 - blood transfusion started at 100 ml/hr at this time.
--- NOTE | 2021-04-20 11:20 | PC.NURSE ---
1010 - INCREASED RATE TO 150 ML/HR AT THIS TIME.
--- NOTE | 2021-04-20 11:22 | PC.NURSE ---
1040 - INCREASED RATE TO 200 ML/HR AT THIS TIME.
--- NOTE | 2021-04-20 11:42 | PC.NURSE ---
1110 - INCREASED RATE TO 250ML/HR AT THIS TIME.
[2021-04-20 12:51] LABS: Hematocrit 31.6 % (37.0-47.0); Hemoglobin 9.4 g/dL (12.2-16.2)
== END 2021-04-20 12:37 | disposition home or self-care (01) ==
LOC: INF 09:08
PROVIDERS: PCP Family Medicine; Visit Provider Family Medicine
DX: D64.9 Anemia, unspecified (principal)
CPT/HCPCS: 36430; 85014; 85018; P9016

== ENCOUNTER → 2021-04-27 10:16 | Outpatient (CLI) | payer MEDICARE, MEDICAID, SELFPAY ==
--- NOTE | 2021-04-27 10:25 | XR_ITS ---
FINAL REPORT CLINICAL HISTORY: right wrist fracture COMPARISON: March 16, 2021 FINDINGS: LEFT WRIST Three views were obtained. There is a subacute to chronic fracture of the distal ulnar diaphysis with evidence of further healing. There are mild degenerative changes of the wrist. The bones are osteopenic. There is no soft tissue abnormality. IMPRESSION: Healing fracture of the distal ulna. Reviewed, Interpreted and Dictated by Juan Samayoa III, MD Transcribed by Genesis Galarza Authenticated by Juan Samayoa III, MD on 04/27/2021 01:43:53 PM [facility]
== END ==
PROVIDERS: PCP Family Medicine; Visit Provider Orthopaedic Surgery
DX: S52.601A Unspecified fracture of lower end of right ulna, initial encounter for closed fracture (principal)
CPT/HCPCS: 73110

== ENCOUNTER 2021-06-08 09:06 | Outpatient (CLI) | payer MEDICARE, MEDICAID, SELFPAY ==
[2021-06-08 09:13] VITALS: BMI 20.1
[2021-06-08 09:48] LABS: Hematocrit 34.6 % (37.0-47.0); Hemoglobin 10.1 g/dL (12.2-16.2)
== END 2021-06-08 10:20 | disposition home or self-care (01) ==
LOC: INF 09:08
PROVIDERS: PCP Family Medicine; Visit Provider Family Medicine
DX: D64.9 Anemia, unspecified (principal)
CPT/HCPCS: 85014; 85018; 86850

== ENCOUNTER → 2021-06-13 09:43 | Outpatient (CLI) | payer MEDICARE, MEDICAID, SELFPAY ==
--- NOTE | 2021-06-13 09:47 | CT_ITS ---
FINAL REPORT TECHNIQUE: Axial CT images of the abdomen and pelvis were obtained before and after the administration of IV contrast. Oral contrast was administered.This study was performed with techniques to keep radiation doses as low as reasonably achievable (ALARA). Individualized dose reduction techniques using automated exposure control or adjustment of mA and/or kV according to the patient''s size were employed. CLINICAL HISTORY: LIVER DISEASE COMPARISON: 05/14/2020 FINDINGS: Abdomen: There is mild atelectasis or scarring at the lung bases. The gallbladder is distended with wall thickening. There is a nonspecific, 10 mm low-attenuation mass in the left hepatic lobe which appears new as compared to the prior exam. The spleen is unremarkable. There is bilateral adrenal gland enlargement favored to represent hyperplasia. The pancreas has an unremarkable appearance. The kidneys enhance normally. There is a lobular upper abdominal aortic aneurysm measuring 3.9 cm with moderate mural thrombus. This appears stable as compared to the prior exam. There is wall thickening in the mid transverse colon consistent with colon neoplasm. There are enlarged lymph nodes in the transverse mesocolon measuring up to 18 mm consistent with metastatic adenopathy. There is a right cardiophrenic angle node measuring 11 mm. Metastatic adenopathy is not excluded. Pelvis: The appendix is normal. A shunt is status post right hip arthroplasty. The urinary bladder is unremarkable. There is sclerosis throughout the bony skeleton most worrisome for metastatic bone disease. IMPRESSION: 1. Transverse colon mass consistent with colon neoplasm. 2. Findings concerning for metastatic adenopathy. 3. Distended gallbladder with wall thickening. This may be further evaluated with right upper quadrant ultrasound or nuclear medicine hepatobiliary scan. 4. Stable abdominal aortic aneurysm. 5. Nonspecific left hepatic lobe mass. This could be further evaluated with follow-up CT. 6. Sclerosis throughout the bony skeleton most worrisome for metastatic bone disease. Reviewed, Interpreted and Dictated by Juan Samayoa III, MD Transcribed by Anny Simon Authenticated by Juan Samayoa III, MD on 06/13/2021 11:46:08 AM [facility]
== END ==
PROVIDERS: PCP Family Medicine; Visit Provider Nurse Practitioner Family
DX: K76.9 Liver disease, unspecified (principal)
CPT/HCPCS: 74178; Q9967

== ENCOUNTER 2021-07-25 17:39 | Emergency (ER) | payer MEDICARE, MEDICAID, SELFPAY ==
[2021-07-25 17:40] VITALS: BMI 22.1
[2021-07-25 17:55] VITALS: BP 142/68; PULSE 125; RESP 20; TEMP 38.3; O2SAT 96; BMI 21.7
--- NOTE | 2021-07-25 17:56 | XR_ITS ---
PROCEDURE INFORMATION: Exam: XR Chest Exam date and time: 07/25/2021 6:06 PM Age: 80 years old Clinical indication: Cough TECHNIQUE: Imaging protocol: XR of the chest. Views: 1 view. COMPARISON: CR XR RIBS RT MIN 3V W CXR1V 06/15/2020 11:09 AM FINDINGS: Lungs: Resolved bilateral pulmonary infiltrates since comparison. Pleural spaces: Unremarkable. No pleural effusion. No pneumothorax. Heart/Mediastinum: Unremarkable. No cardiomegaly. Bones/joints: Unremarkable. IMPRESSION: Resolved bilateral pulmonary infiltrates since comparison.
[2021-07-25 18:32] LABS: Coronavirus 19, PCR Not Detected (NotDetected); Influenza B, PCR Not Detected (NotDetected)
--- NOTE | 2021-07-25 18:34 | PC.NURSE ---
Looked in on pt, resting in bed.
[2021-07-25 18:35] LABS: Basophils # 0.1 K/mm3 (0-0.2); Basophils % 0.7 % (0.1-2.0); Eosinophils # 0.1 K/mm3 (0.0-0.4); Eosinophils % 0.9 % (0.1-12.0); Hematocrit 26.6 % (37.0-47.0); Hemoglobin 8.3 g/dL (12.2-16.2); Lymphocytes # 0.5 K/mm3 (0.7-4.5); Mean Corpuscular HGB Conc 31.3 g/dL (31.8-35.4); Mean Corpuscular Hemoglobin 30.1 pg (27.0-31.2); Mean Corpuscular Volume 96.1 fl (81-99); Monocytes # 0.5 K/mm3 (0.1-1.0); Monocytes % 7.7 % (1.7-9.3); Neutrophils # 5.6 K/mm3 (1.8-7.8); Neutrophils % 82.7 % (37.0-80.0); Platelet Count 535 K/mm3 (142-424); Red Blood Count 2.77 M/mm3 (4.20-5.40); Red Cell Distribution Width 14.5 % (11.5-17.5); White Blood Count 6.7 K/mm3 (4.8-10.8)
[2021-07-25 18:43] LABS: Chloride 100 mmol/L (98-107); Sodium 129 mmol/L (136-145)
[2021-07-25 18:45] LABS: Blood Urea Nitrogen 21 mg/dl (7-17); Creatinine Clearance Estimated 35 mL/min (50-200); Estimated Glomerular Filt Rate 48 ml/min (>60); GFR (African American) 58 ML/MIN (>60)
[2021-07-25 18:46] LABS: Alanine Aminotransferase 17 U/L (12-78); Albumin Level 3.3 g/dl (3.5-5.0); Albumin/Globulin Ratio 0.9 (1.1-1.8); Alkaline Phosphatase 332 U/L (38-126); Aspartate Amino Transferase 20 U/L (14-36); Bilirubin,Total 0.2 mg/dl (0.2-1.3); Calcium 7.8 mg/dl (8.4-10.2); Carbon Dioxide 24 mmol/L (22.0-30.0); Globulin 3.5 g/dL (1.3-3.2); Glucose 137 mg/dl (74-100); Total Protein,Serum 6.8 g/dl (6.3-8.2)
[2021-07-25 18:47] LABS: Lactic Acid 1.5 mmol/L (0.7-2.1)
[2021-07-25 19:20] LABS: Influenza A, PCR Detected (NotDetected)
--- NOTE | 2021-07-25 19:59 | HMH.EDGENADL ---
ED Disposition Clinical Impression: Influenza A Disposition: Home, Self-Care Condition on Discharge: Fair Referrals: Linn Arango MD [Primary Care Provider] - - Critical Care Critical Care Time: No Attestation: On 07/25/21, the high probability of a clinically significant, sudden or life threatening deterioration of the following system(s) required my full and direct attention, intervention and personal management. The time I documented below is in addition to time spent performing reported procedures but includes the following listed in this critical care notation. Medical Decision Making - Medical Records Medical records reviewed: Yes: I reviewed the patient's medical records. - Ricardo Inquiry Pt receiving controlled substance: No Vital Signs: 07/25/21 17:55 Temperature 101.0 F H Temperature Source Oral Pulse Rate [Radial] 125 H Respiratory Rate 20 Blood Pressure [Right Arm] 142/68 H Blood Pressure Mean [Right Arm] 92 Blood Pressure Position [Right Arm] Sitting 02 Sat by Pulse Oximetry 96 Oxygen Delivery Method Room Air - Lab Data Lab results reviewed: Yes: I reviewed the patient's lab results. Lab Results 07/25/21 18:20: WBC 6.7, RBC 2.77 L, Hgb 8.3 L, Hct 26.6 L, MCV 96.1, MCH 30.1, MCHC 31.3 L, RDW 14.5, Plt Count 535 H, MPV 8.0, Neut % (Auto) 82.7 H, Lymph % (Auto) 8.0 L, [place] % (Auto) 7.7, Eos % (Auto) 0.9, Baso % (Auto) 0.7, Neut # (Auto) 5.6, Lymph # (Auto) 0.5 L, [place] # (Auto) 0.5, Eos # (Auto) 0.1, Baso # (Auto) 0.1 07/25/21 18:20: Sodium 129 L, Potassium 5.0, Chloride 100, Carbon Dioxide 24, Anion Gap 10.0, BUN 21 H, Creatinine 1.10 H, Estimated Creat Clear 35, Estimated GFR 48 L, Est GFR ( Amer) 58 L, Glucose 137 H, Calcium 7.8 L, Total Bilirubin 0.2, AST 20, ALT 17, Alkaline Phosphatase 332 H, Total Protein 6.8, Albumin 3.3 L, Globulin 3.5 H, Albumin/Globulin Ratio 0.9 L 07/25/21 18:20: Lactate 1.5 07/25/21 18:20: SARS-CoV-2 (PCR) Not detected, Influenza A Untype (PCR) Detected A, Influenza Type B (PCR) Not detected Result diagrams: 07/25/21 18:20 07/25/21 18:20 Orders (Tests/Meds): ED MEDICATIONS Generic Name Dose Route Start Last Admin Trade Name Freq PRN Reason Stop Dose Admin Ceftriaxone Sodium 1 gm/ 50 mls @ 100 mls/hr 07/25/21 19:30 07/25/21 19:56 Sodium Chloride IV 08/08/21 19:29 100 mls/hr Q24H TK Administration Discontinued Medications Generic Name Dose Route Start Last Admin Trade Name Freq PRN Reason Stop Dose Admin Acetaminophen 1,000 mg 07/25/21 17:58 Acetaminophen 500mg Tab PO 07/25/21 17:59 ONCE ONE Azithromycin 500 mg 07/25/21 19:28 Azithromycin 250mg Tablet PO 07/25/21 19:29 ONCE ONE Ondansetron HCl 4 mg 07/25/21 18:46 07/25/21 18:48 Ondansetron 4mg/2ml Vial IV 07/25/21 18:47 4 mg ONCE ONE Administration ORDERS Category Date Time Status Blood Culture Stat Micro 07/25/21 18:20 Received Medical Decision Narrative: Ivis is a 80-year-old female with a history significant for stage IV metastatic cancer, COPD without requiring home O2 is presenting for chief complaint of fever, rhinorrhea, body aches and decreased p.o. intake associated with nausea. Differential diagnosis includes, but is not limited to, COVID-19, influenza, pneumonia, dehydration, ACS, other. On initial exam, patient is hemodynamically stable and nontoxic-appearing. She was evaluate CBC, CMP, lactic acid, COVID-19 screen/influenza screen, chest x-ray, blood cultures and treated with Tylenol. Patient's lab work was significant for mild hyponatremia and anemia but is otherwise nonactionable. It is positive for influenza A without acute consolidation on chest x-ray. Explains patient's presentation. Given that she currently denies dyspnea, hemoptysis, no lateral leg swelling, chest pain I believe that ACS or PE is less likely. I counseled her on the fact that she is at high risk for blood clots and decompensation as well as
[2021-07-25 20:00] VITALS: BP 133/60; PULSE 107; TEMP 37.4; O2SAT 93
[2021-07-25 20:45] VITALS: BP 128/72; PULSE 102; RESP 18; TEMP 37.3; O2SAT 95
== END 2021-07-25 20:48 | disposition home or self-care (01) ==
PROVIDERS: Emergency Provider Emergency Medicine; PCP Family Medicine
DX: J10.1 Influenza due to other identified influenza virus with other respiratory manifestations (principal); C18.9 Malignant neoplasm of colon, unspecified; C78.7 Secondary malignant neoplasm of liver and intrahepatic bile duct; C79.51 Secondary malignant neoplasm of bone; J44.9 Chronic obstructive pulmonary disease, unspecified; Z86.73 Personal history of transient ischemic attack (TIA), and cerebral infarction without residual deficits; I10 Essential (primary) hypertension; E78.5 Hyperlipidemia, unspecified; F17.210 Nicotine dependence, cigarettes, uncomplicated
CPT/HCPCS: 71045; 80053; 83605; 85025; 87040; 96365; 96375; 99284; C9803; J0696; J2405; U0003; U0005

== ENCOUNTER 2021-10-20 08:50 | Outpatient (CLI) | payer MEDICARE, MEDICAID, SELFPAY ==
[2021-10-20] VITALS (12 sets, daily range): BP systolic 114–142; BP diastolic 65–83; PULSE 86–91; RESP 16–18; TEMP 36.3–36.6; O2SAT 96–100; BMI 19.5
[2021-10-20 09:40] LABS: Hematocrit 20.6 % (37.0-47.0); Hemoglobin 6.2 g/dL (12.2-16.2)
[2021-10-20 14:07] LABS: Hematocrit 27.3 % (37.0-47.0)
[2021-10-20 14:11] LABS: Hemoglobin 8.2 g/dL (12.2-16.2)
--- NOTE | 2021-10-20 15:14 | PC.NURSE ---
1030 Blood tranfusion initiated at this time. Vital signs stable. Resp easy/regular. Instructed patient on s/s transfusion reaction with pt verbalizing understanding. Lungs CTA. 1100 Patient tolerating blood well. Denies complaints. VSS. No problems noted. 1130 Continues to tolerate blood well. VSS. Resp easy/reg. Denies complaints. No s/s transfusion reaction noted. 1230 Patient ate lunch and tolerated well. Skin warm/dry to touch. VSS. No s/s transfusion reaction or problems. Up to bathroom with assistance. 1235 Blood complete at this time. Will obtain one hour post transfusion H&H. 1335 One hour post transfusion H&H obtained. VSS. Patient has tolerated transfusion well with no problems or s/s reaction noted. Skin warm/dry to touch. Resp easy/reg. 1410 One hour post H&H up to 8.2/27.3 from pre transfusion level of 6.2/20.6.
== END 2021-10-20 13:38 | disposition home or self-care (01) ==
LOC: INF 08:52
PROVIDERS: PCP Family Medicine; Visit Provider Family Medicine
DX: D50.8 Other iron deficiency anemias (principal)
CPT/HCPCS: 36430; 85014; 85018; 86850; P9016

== ENCOUNTER 2021-10-22 08:38 | Emergency (ER) | payer MEDICARE, MEDICAID, SELFPAY ==
[2021-10-22 08:51] VITALS: BP 96/56; PULSE 102; RESP 18; TEMP 36.7; O2SAT 90; BMI 18.0
[2021-10-22 09:05] VITALS: BP 96/56; PULSE 102; RESP 18; TEMP 36.7; O2SAT 88; BMI 18.1
--- NOTE | 2021-10-22 09:16 | HMH.EDUTC ---
[facility] [place] Impression: Herpes zoster Qualifiers: Herpes zoster complications: unspecified herpes zoster complication Qualified Code(s): B02.8 - Zoster with other complications Disposition: Home, Self-Care Condition on Discharge: Fair Instructions: DI for Shingles Additional Instructions: Follow up with Dr Arango Sunday Prescriptions: Gabapentin [Gabapentin 300mg/6ml Oral Soln] 3 ml PO QID 10 Days #120 ml Transmission Status: Sent to [facility] prednisoLONE [Prednisolone] 10 ml PO BID 5 Days #100 ml Transmission Status: Pending to [facility] Scopolamine 1 each TD ONCE 3 Days #4 patch Transmission Status: Pending to [facility] Acyclovir [Zovirax] 800 mg PO 5XDAY 10 Days #1000 ml Transmission Status: Pending to [facility] Referrals: Linn Arango MD [Primary Care Provider] - Time of Disposition: 09:38 Medical Decision Making - Ricardo Inquiry Pt receiving controlled substance: No Vital Signs: 10/22/21 08:51 Temperature 98.1 F Temperature Source Oral Pulse Rate [Right Radial] 102 H Respiratory Rate 18 Blood Pressure [Right Arm] 96/56 L Blood Pressure Mean [Right Arm] 69 Blood Pressure Source [Right Arm] Automatic Cuff Blood Pressure Position [Right Arm] Sitting 02 Sat by Pulse Oximetry 90 L Oxygen Delivery Method Room Air [facility] [place] - General Stated complaint: rash Time Seen by Provider: 10/22/21 09:16 Mode of Arrival: Wheelchair Source of Information: Patient, Relative Limitations: Physical Limitations Description of Symptoms (Recalled from Triage Doc. by RN): Pt's has red rash that travels from her left side of her back around her breast. Pt states that it hurts and is itchy. - History of Present Illness Provider Complaint: Red itchy, painful rash on left upper back that radiates around to breast X 1 day. Patient has stage IV colon cancer, untreated. Does not absorb medication well. Onset (ago): day(s) (1) Location: chest, back Severity: severe Severity scale (1-10): 10 Quality: burning Consistency: constant Relieving factors: none Exacerbating factors: none Associated symptoms: denies other symptoms, rash Treatments prior to arrival: none - Related Data Home Medications Medication Instructions Recorded Confirmed phenytoin sodium extended 100 mg 100 mg PO TID 07/06/17 10/20/21 capsule Phenytoin [Dilantin 50mg Chewable 50 mg PO QODHS 08/21/17 10/20/21 Tablet] Fluticasone/Vilanterol [Breo 1 each IH DAILY 08/31/17 10/20/21 Ellipta 100-25 Mcg INH] Cyanocobalamin (Vitamin B-12) 1,000 mcg IM MONTHLY 04/26/18 07/25/21 [Vitamin B-12] Ursodiol 500 mg PO BID 04/26/18 10/20/21 clopidogrel 75 mg tablet 75 mg PO DAILY 02/24/19 10/20/21 ipratropium 0.5 mg-albuterol 3 mg 1 neb INHALATION Q6HP PRN 05/28/19 10/20/21 (2.5 mg base)/3 mL nebulization soln losartan 50 mg tablet 50 mg PO DAILY tab 05/28/19 10/20/21 cholecalciferol (vitamin D3) 1,250 1,250 mcg PO WEEKLY 07/07/21 07/25/21 mcg (50,000 unit) capsule ferrous gluconate 324 mg (37.5 mg 324 mg PO DAILY 07/07/21 10/20/21 iron) tablet Previous Rx's Medication Instructions Recorded Oseltamivir Phosphate [Tamiflu 75 mg PO DAILY #10 cap 07/25/21 75mg Capsule] Acyclovir [Zovirax] 800 mg PO 5XDAY 10 Days #1000 ml 10/22/21 Gabapentin [Gabapentin 300mg/6ml 3 ml PO QID 10 Days #120 ml 10/22/21 Oral Soln] Scopolamine 1 each TD ONCE 3 Days #4 patch 10/22/21 prednisoLONE [Prednisolone] 10 ml PO BID 5 Days #100 ml 10/22/21 Allergies Allergy/AdvReac Type Severity Reaction Status Date / Time No Known Allergies Allergy Verified 10/20/21 12:19 [facility] History - Hepatitis A Screen Attestation statement:: This patient has been screened for Hepatitis A risk factors. I have reviewed the patient's past medical history: Yes Medical History: Reports:: Aneurysm, Anxiety, Cancer, Chronic Obstructive Pulmonary Disease (COPD), Hyperlipidemia, Hypertension, Lung Disea
[2021-10-22 09:45] VITALS: BP 96/56; PULSE 102; RESP 18; TEMP 36.7; O2SAT 90
== END 2021-10-22 10:01 | disposition home or self-care (01) ==
PROVIDERS: Emergency Provider Physician Assistant; PCP Family Medicine
DX: B02.9 Zoster without complications (principal); R21 Rash and other nonspecific skin eruption; C18.9 Malignant neoplasm of colon, unspecified; Z72.0 Tobacco use
CPT/HCPCS: 96372; 99212; G0463

== ENCOUNTER → 2021-10-24 12:00 | Outpatient (CLI) | payer MEDICARE, MEDICAID, SELFPAY ==
[2021-10-24 12:16] LABS: Microscopic, Urine URINE MICROSCOPIC (MICROSCOPIC)
[2021-10-24 12:23] LABS: Appearance,Urine CLEAR (Clear); Bilirubin,Urine Negative (Negative); Blood, Urine Negative (Negative); Color,Urine YELLOW (Yellow); Glucose,Urine (UA) Negative (Negative); Ketones,Urine Negative (Negative); Leukocyte Esterase,Urine Negative (Negative); Nitrate,Urine Negative (Negative); PH,Urine 5.5 (5.0-8.5); Protein,Urine Negative (Negative); Urobilinogen,Urine 0.2 EU/dl (0.2)
[2021-10-24 12:31] LABS: Basophils % 0.2 % (0.1-2.0); Eosinophils % 0.1 % (0.1-12.0); Hematocrit 28.8 % (37.0-47.0); Hemoglobin 8.5 g/dL (12.2-16.2); Lymphocytes # 0.5 K/mm3 (0.7-4.5); Lymphocytes % 3.3 % (10-50); Mean Corpuscular HGB Conc 29.6 g/dL (31.8-35.4); Mean Corpuscular Hemoglobin 29.8 pg (27.0-31.2); Mean Corpuscular Volume 100.8 fl (81-99); Mean Platelet Volume 8.2 fl (7.4-10.4); Monocytes # 0.5 K/mm3 (0.1-1.0); Monocytes % 3.2 % (1.7-9.3); Neutrophils # 13.9 K/mm3 (1.8-7.8); Neutrophils % 93.3 % (37.0-80.0); Platelet Count 769 K/mm3 (142-424); Red Blood Count 2.85 M/mm3 (4.20-5.40); Red Cell Distribution Width 16.1 % (11.5-17.5); White Blood Count 14.9 K/mm3 (4.8-10.8)
[2021-10-24 12:33] LABS: MANUAL DIFFERENTIAL MANUAL DIFFERENTIAL (MANUAL DIFF)
[2021-10-24 12:36] LABS: Chloride 95 mmol/L (98-107); Potassium 4.4 mmoL/L (3.5-5.1); Sodium 127 mmol/L (136-145)
[2021-10-24 12:39] LABS: Alanine Aminotransferase 19 U/L (12-78); Albumin Level 2.6 g/dl (3.5-5.0); Albumin/Globulin Ratio 0.8 (1.1-1.8); Alkaline Phosphatase 261 U/L (38-126); Anion Gap 10.4 mEq/L (5-15); Aspartate Amino Transferase 23 U/L (14-36); Blood Urea Nitrogen 13 mg/dl (7-17); Calcium 7.7 mg/dl (8.4-10.2); Carbon Dioxide 26 mmol/L (22.0-30.0); Estimated Glomerular Filt Rate 48 ml/min (>60); GFR (African American) 58 ML/MIN (>60); Globulin 3.3 g/dL (1.3-3.2); Glucose 119 mg/dl (74-100); Total Protein,Serum 5.9 g/dl (6.3-8.2)
[2021-10-24 12:40] LABS: Bacteria,Urine Trace /lpf; Bilirubin,Total 0.1 mg/dl (0.2-1.3); Squamous Epithelial Cell,Urine Occasional #/hpf (0-5)
[2021-10-24 12:49] LABS: Lymphocytes % 2 % (10-50); Monocytes % 3 % (2-9); Neutrophils % 95 % (42-76); Total Cells Counted 100
[2021-10-24 12:50] LABS: Anisocytosis 1+; Hypochromasia 1+; Macrocytosis 1+; Ovalocytes 1+; Platelet Estimate Marked Decrease
== END ==
PROVIDERS: PCP Family Medicine; Visit Provider Family Medicine
DX: I69.351 Hemiplegia and hemiparesis following cerebral infarction affecting right dominant side (principal); D51.1 Vitamin B12 deficiency anemia due to selective vitamin B12 malabsorption with proteinuria; J44.9 Chronic obstructive pulmonary disease, unspecified
CPT/HCPCS: 80053; 81001; 85007; 85025